=== PATIENT | female | born 1935 | race Caucasian/White ===

== ENCOUNTER 2020-02-18 13:17 | Outpatient (CLI) | payer MEDICARE, SELFPAY ==
--- NOTE | 2020-02-18 13:53 | ECHO_ITS ---
Patient Info Name: Jessica Sparks Age: 84 years : 1935 Gender: Female Ht: 68 in Wt: 282 lbs BSA: 2.54 m2 HR: 60 bpm BP: 141 / 70 mmHg Technical Quality: Fair Exam Date: 02/18/2020 2:02 PM Exam Location: [facility] Patient Status: Outpatient Admit Date: 02/18/2020 Staff Ordering Physician: Arun Weldon PA-C Cleaner And Dyer: Varsha Garcia RDCS Attending Provider: Arun Weldon PA-C Referring Physician: Fatemeh JONES; Exam Type: CA echo doppler color flow Study Info Indications - edema Complete two-dimensional, color flow and Doppler transthoracic echocardiogram is performed. Summary 1. Left ventricular chamber dimension is normal. 2. Left ventricular systolic function is normal, estimated at 60-65%. 3. The left ventricular diastolic function is grade I diastolic dysfunction. 4. E/e' 9 is minimally elevated. 5. Left atrial chamber dimension is mildly enlarged. 6. Right atrial chamber dimension is mildly enlarged. 7. There is mild to moderate tricuspid valve regurgitation. 8. No pulmonary hypertension, estimated pulmonary arterial systolic pressure is 33 mmHg. Left Ventricle E/e' 9 is minimally elevated. Left ventricular chamber dimension is normal. Left ventricular systolic function is normal, estimated at 60-65%. The left ventricular diastolic function is grade I diastolic dysfunction. Right Ventricle Right ventricular chamber dimension is normal. Right ventricular systolic function is normal. Left Atria Left atrial chamber dimension is mildly enlarged. Right Atria Right atrial chamber dimension is mildly enlarged. Aortic Valve The aortic valve is trileaflet. There is no aortic valve stenosis. There is no aortic valve regurgitation. Pulmonic Valve There is no pulmonic regurgitation. Mitral Valve There is no mitral valve stenosis. There is no mitral valve regurgitation. Tricuspid Valve There is mild to moderate tricuspid valve regurgitation. No pulmonary hypertension, estimated pulmonary arterial systolic pressure is 33 mmHg. Pericardium/Pleural There is no pericardial effusion. Inferior Vena Cava Normal inferior vena cava with >50% collapse upon inspiration consistent with normal right atrial pressure, 5 mmHg. Aorta The aortic root size at the sinus of Valsalva is normal. Left Ventricular Outflow Tract Name Value Normal LVOT 2D LVOT Diameter 2.0 cm LVOT Doppler LVOT Peak Gradient 5 mmHg LVOT Mean Gradient 2 mmHg LVOT VTI 26 cm LVOT VTI/AV VTI Ratio 0.9 LVOT Stroke Volume 82 ml LVOT CO 14.3 l/min LVOT CI 5.6 l/min/m2 Pulmonic Valve Name Value Normal PV Doppler PV Peak
== END 2020-02-18 13:18 | disposition home or self-care (01) ==
PROVIDERS: PCP Internal Medicine; Visit Provider Physician Assistant
DX: R60.0 Localized edema (principal); I51.7 Cardiomegaly
CPT/HCPCS: 93306

== ENCOUNTER → 2020-10-03 13:14 | Outpatient (REF) | payer MEDICARE, SELFPAY | LOC: ANHLAB 13:14 | PROVIDERS: PCP Internal Medicine; Visit Provider Nurse Practitioner | DX: R22.9 Localized swelling, mass and lump, unspecified (principal); L72.0 Epidermal cyst | CPT/HCPCS: 88304 ==

== ENCOUNTER 2020-11-05 19:07 | Emergency (ER) | payer MEDICARE, SELFPAY ==
--- NOTE | ~2020-11-05 | XR_ITS ---
EXAMINATION: XR wrist LT min 3V DATE: 11/05/2020 19:39 INDICATION: Left wrist pain post fall TECHNIQUE: Posteroanterior, ulnar deviation, oblique, and lateral views of the left wrist were obtain ed. COMPARISON: none FINDINGS: Nondisplaced mildly comminuted intra-articular fracture at the distal left radius. No significant fra cture gap or incongruity appreciated at the articular cortex. Alignment remains essentially anatomic. No other fractures identified. Polyarticular osteoarthritis, moderate severity at the first carpomet acarpal and second and fourth metacarpophalangeal joints and mild at the distal radioulnar, wrist and remaining metacarpophalangeal joints. Soft tissue swelling about the distal forearm. IMPRESSION: 1. Nondisplaced comminuted intra-articular fracture of the distal left radius. 2. Mild to moderate polyarticular osteoarthritis at the visualized left hand and wrist. Reviewed, dictated and finalized at location A. E VEHICLE SERVICE ATTENDANT IMPRESSION: 1. Nondisplaced comminuted intra-articular fracture of the distal left radius. 2. Mild to moderate polyarticular osteoarthritis at the visualized left hand an d wrist.
--- NOTE | ~2020-11-05 | XR_ITS ---
EXAMINATION: XR elbow LT min 3V DATE: 11/05/2020 19:39 INDICATION: Left arm pain post fall TECHNIQUE: Anteroposterior, two oblique and lateral views of the left elbow were obtained. COMPARISON: None. FINDINGS: Alignment is normal. No fracture or joint effusion. Mild osteoarthritis at the left elbow with mild n onuniform joint space narrowing and small marginal osteophytes at the ulnotrochlear articulation. Mod erate-sized olecranon spur. Soft tissues are unremarkable. IMPRESSION: 1. No acute osseous abnormality. Reviewed, dictated and finalized at location A. OLL EXAMINER
--- NOTE | ~2020-11-05 | XR_ITS ---
EXAMINATION: XR shoulder LT min 2V DATE: 11/05/2020 19:39 INDICATION: Left shoulder pain post fall TECHNIQUE: AP internally and externally rotated, AP oblique externally rotated and transscapular Y vi ews of the left shoulder were obtained. COMPARISON: None FINDINGS: Normal alignment. No fracture.Mild to moderate left glenohumeral and acromioclavicular osteoarthriti s. Visualized portions of the lungs are clear. Severe lower cervical spondylosis. Soft tissues are un remarkable. IMPRESSION: Mild to moderate left glenohumeral and acromioclavicular osteoarthritis. No acute osseous abnormality . Reviewed, dictated and finalized at location A. SYSTEMS ANALYST IMPRESSION: Mild to moderate left glenohumeral and acromioclavicular osteoarthritis. No acu te osseous abnormality.
[2020-11-05 19:08] VITALS: BP 129/61; PULSE 73; RESP 20; TEMP 36.6; O2SAT 100
--- NOTE | 2020-11-05 19:18 | ED.FALL ---
HPI - Fall General Chief Complaint: Fall Stated Complaint: fall, left wrist pain Time Seen by Provider: 11/05/20 19:14 Source: patient Mode of arrival: ambulatory Limitations: no limitations History of Present Illness HPI Narrative: An 85-year-old woman comes into the emergency department today after a fall at home. Patient states that she got lightheaded and started to fall. She complains of pain in her left arm particularly in the shoulder and wrist. Patient states that this has happened before where she has gotten lightheaded. She is identified no certain cause. She denies any chest pain, shortness of breath or dizziness currently. Patient denies any numbness or tingling in the affected extremity. She states that she was able to ambulate in here without any difficulties. Related Data Home Medications Medication Instructions Recorded Confirmed aspirin 81 mg tablet,delayed 162 mg PO DAILY tablet 08/10/19 06/02/20 release hydrocortisone 1 % topical cream 1 applic TOPICAL BID PRN 06/02/20 06/02/20 Allergies Allergy/AdvReac Type Severity Reaction Status Date / Time isosorbide Allergy Mild Rash Verified 10/16/20 14:12 diphenhydramine Allergy Unknown Hives Verified 10/16/20 14:12 medroxyprogesterone Allergy Unknown Unknown Verified 10/16/20 14:12 BANDAIDS Allergy Mild REDNESS Uncoded 10/03/20 13:13 PROVERS Allergy Mild PER PT, Uncoded 10/03/20 13:13 STATES INFO FROM HER DRS OFFICE Review of Systems Review of Systems: Narrative: CONSTITUTIONAL: Denies fever, chills, or sweats. EYES: Denies visual changes, redness, or discharge. ENT: Denies rhinorrhea, congestion, sore throat, or otalgia. CARDIOVASCULAR: Denies chest pain, palpitations, or edema. RESPIRATORY: Denies cough or dyspnea. GASTROINTESTINAL: Denies abdominal pain, nausea, vomiting, or diarrhea. GENITOURINARY: Denies dysuria or hematuria. SKIN: Denies rash or itching. MUSCULOSKELETAL: Denies back pain, joint pain, or myalgia. Endorses left upper extremity pain. NEUROLOGIC: Denies headache, numbness, dizziness, or weakness. PSYCHIATRIC: Denies anxiety or depression. [facility] Past Medical History Medical History (Updated 11/05/20 @ 20:34 by Joce Delcid DO) History of basal cell carcinoma (BCC) of skin History of squamous cell carcinoma of skin Ventral hernia Surgical History Surgical History Hx of knee surgery Family History Family History Father Family history of heart disease in male family member before age 55 Mother Family history of heart disease in male family member before age 55 Family history of malignant neoplasm Sibling Family history of heart disease in male family member before age 55 Family history of multiple sclerosis Family history of malignant neoplasm Family history of malignant neoplasm of bone Social History Social History Smoking status: Never smoker Second hand tobacco smoke exposure: No Alcohol intake: never Substance use: never Gender identity (if verbalized by the patient): Female Exam Narrative: Exam Narrative: GENERAL: Well-appearing, well-nourished, and in no acute distress. HEAD: Normocephalic, atraumatic. EYES: PERRLA and EOMI. ENT: Nares clear, no rhinorrhea or epistaxis. Mucous membranes moist. NECK: Supple. No adenopathy or masses. No carotid bruits or JVD CHEST: Clear to auscultation. No respiratory distress. No wheezes rales or rhonchi HEART: Regular rate and rhythm. No murmur heard. Normal peripheral pulses. ABDOMEN: Soft, nontender, nondistended, normal active bowel sounds. EXTREMITIES: Normal range of motion. No edema. SKIN: Warm, dry, no rash. NEURO: No focal deficits. Alert and oriented x3. PSYCH: Normal mood and affect. Course Reevaluation(s) Reevaluation #1: Patient updated to the results of he
--- NOTE | 2020-11-05 19:25 | PC.NURSE ---
pt to xray at this time
[2020-11-05] MEDS: LACTATED RINGERS 1,000 ML 999 ML IV CONT (19:47)
[2020-11-05] MEDS: HYDROcodone/acetaminophen (*CRX) 5-325 MG TABLET 1 TAB PO (19:48)
--- NOTE | 2020-11-05 19:55 | PC.NURSE ---
pt states she isn't able to give urine sample at this time. she states she went before coming to the ed. refusing straight cath at this time.
[2020-11-05 19:57] LABS: Basophils Percent Auto 0.3 % (0.2-1.2); Eosinophils Absolute Auto 0.2 K/mm3 (0-0.3); Eosinophils Percent Auto 1.8 % (0-4.4); Hematocrit 40.6 % (37.0-47.0); Hemoglobin 13.3 g/dL (12.0-15.0); Immature Granulocyte Absolute 0.03 K/mm3 (0.00-0.031); Immature Granulocyte Percent A 0.3 % (0-0.5); Lymphocytes Absolute Auto 1.19 K/mm3 (0.9-3.2); Lymphocytes Percent Auto 13.3 % (18.3-44.2); Mean Corpuscular HGB Conc 32.8 g/dl (32-36); Mean Corpuscular Hemoglobin 30.7 pg (26-34); Mean Corpuscular Volume 93.8 fl (80-100); Mean Platelet Volume 10.4 fl (7.4-10.4); Monocytes Absolute Auto 0.7 K/mm3 (0.1-0.6); Monocytes Percent Auto 7.5 % (2.6-8.5); Neutrophils Absolute Auto 6.9 K/mm3 (1.3-6.7); Neutrophils Percent Auto 76.8 % (45.5-73.1); Platelet Count Result 213 k/mm3 (150-375); Red Blood Count 4.33 M/mm3 (4.2-5.4); Red Cell Distribution Width 14.1 % (11.5-14.5)
[2020-11-05 20:07] LABS: Potassium 3.6 mmol/L (3.4-5.0)
[2020-11-05 20:12] LABS: Alanine Aminotransferase 25 U/L (4-35); Albumin Level 3.9 g/dL (3.5-5.1); Alkaline Phosphatase 91 U/L (38-126); Anion Gap 7 mmol/L (8-16); Aspartate Amino Transferase 32 U/L (14-36); Bilirubin,Total 0.6 mg/dL (0.2-1.3); Blood Urea Nitrogen 26 mg/dL (7-17); Carbon Dioxide 26 mmol/L (22-30); Chloride 107 mmol/L (98-107); Estimated CRCL calculation 37 ml/min; Estimated Glomerular Filt Rate 53; Glucose 148 mg/dL (65-105); Magnesium 1.8 mg/dL (1.6-2.3); Sodium 140 mmol/L (137-145)
[2020-11-05 21:00] VITALS: BP 126/85; PULSE 76; RESP 18; O2SAT 99
== END 2020-11-05 21:07 | disposition home or self-care (01) ==
PROVIDERS: Emergency Provider Emergency Medicine; PCP Internal Medicine
DX: S52.532A Colles' fracture of left radius, initial encounter for closed fracture (principal); Z79.82 Long term (current) use of aspirin; Z85.828 Personal history of other malignant neoplasm of skin; M19.012 Primary osteoarthritis, left shoulder; M19.032 Primary osteoarthritis, left wrist; M18.9 Osteoarthritis of first carpometacarpal joint, unspecified; M19.042 Primary osteoarthritis, left hand; W18.39XA Other fall on same level, initial encounter
CPT/HCPCS: 29125; 36415; 73030; 73080; 73110; 80053; 83735; 85025; 99284; A4565; A9270; J7120

== ENCOUNTER 2020-12-15 13:31 | Outpatient (CLI) | payer MEDICARE, SELFPAY ==
--- NOTE | ~2020-12-15 | US_ITS ---
EXAMINATION: US carotid duplex BI DATE: 12/15/2020 14:35 INDICATION: Syncope and collapse. Carotid atherosclerosis. TECHNIQUE: Grayscale, color Doppler, and pulsed Doppler images of the cervical carotid arteries were obtained. The degree of vessel stenosis is placed in one of the following categories: normal, <50%, 5 0-69%, >=70% but less than near-occlusion, near-occlusion, or total occlusion. Note that percent sten osis relative to normal distal artery lumen diameter is indirectly measured from velocity measurement s as described by Abelino, et al. Radiology 2003; 229:340-346. COMPARISON: None. FINDINGS: RIGHT: The right common carotid artery (CCA) peak systolic velocity (PSV) is 83 cm/s. The right internal car otid artery (ICA) PSV is 130 cm/s. The right ICA end-diastolic velocity (EDV) is 24 cm/s. The right I CA/CCA PSV ratio is 1.6. Grayscale and color Doppler images including secondary Doppler criteria yiel d an estimate of <50% diameter reduction from plaque in the ICA. The external carotid artery (ECA) PS V is 121 cm/s. There is antegrade flow in the right vertebral artery. LEFT: The left CCA PSV is 88 cm/s. The left ICA PSV is 98 cm/s. The left ICA EDV is 19 cm/s. The left ICA/C CA PSV ratio is 1.1. Grayscale and color Doppler images yield an estimate of <50% diameter reduction from plaque in the ICA. The cervical left internal carotid artery distal to the bulb is tortuous. The ECA PSV is 96 cm/s. There is antegrade flow in the left vertebral artery. IMPRESSION: 1. <50% stenosis in the right internal carotid artery. 2. <50% stenosis in the left internal carotid artery. Reviewed, dictated and finalized at location A.
--- NOTE | 2020-12-20 13:53 | WPDHOLTEREM ---
Holter/Event Monitor Holter/Event Monitor Date of procedure: 12/15/20 Procedure Type: 48 hour holter monitor Indications: Syncope Conclusion: 1. 48 hour holter monitor on 12/15/20. 2. Underlying rhythm is sinus rhythm. HR range 51-102 bpm; average HR 70 bpm. 3. There are 308 premature supraventricular complexes and 7 supraventricular couplets. No supraventricular tachycardia. 4. There are 2 premature ventricular complexes. No ventricular tachycardia. 5. No sinoatrial or atrioventricular blocks. No significant pauses greater than 2 seconds. 6. Patient reports an episode of dizziness which demonstrate sinus rhythm at 70 bpm.
== END 2020-12-15 13:32 | disposition home or self-care (01) ==
PROVIDERS: PCP Internal Medicine; Visit Provider Internal Medicine
DX: R55 Syncope and collapse (principal); I65.23 Occlusion and stenosis of bilateral carotid arteries
CPT/HCPCS: 93225; 93226; 93880

== ENCOUNTER → 2021-02-28 11:45 | Outpatient (CLI) | payer MEDICARE, SELFPAY ==
--- NOTE | ~2021-02-28 | CT_ITS ---
EXAMINATION: CT brain wo con DATE: 02/28/2021 12:03 INDICATION: Dizziness. Syncope. TECHNIQUE: Computed tomography (CT) of the head was performed without intravenous contrast. The mA wa s adjusted according to patient size. Iterative reconstruction technique was employed. The dose-lengt h product was 599.57 mGy-cm. COMPARISON: Head CT 07/09/2005 FINDINGS: There is no intracranial hemorrhage, acute infarction, or abnormal intracranial mass lesion . The ventricles are normal in size. There is anteroposterior elongation of the ocular globes. The pa ranasal sinuses are clear. The mastoid air cells are normal. IMPRESSION: 1. Normal brain. Reviewed, dictated and finalized at location A. IMPRESSION: 1. Normal brain.
== END ==
PROVIDERS: PCP Internal Medicine; Visit Provider Internal Medicine
DX: R42 Dizziness and giddiness (principal)
CPT/HCPCS: 70450

== ENCOUNTER 2021-04-03 14:16 | Emergency (ER) | payer MEDICARE, SELFPAY ==
[2021-04-03] VITALS (7 sets, daily range): BP systolic 135–166; BP diastolic 61–94; PULSE 58–76; RESP 16–22; TEMP 36.8; O2SAT 97–98
--- NOTE | ~2021-04-03 | CT_ITS ---
EXAMINATION: CTA abdomen pelvis EXAM DATE: 04/05/2021 11:33 INDICATION: Flank pain, evaluate endoleak . TECHNIQUE: Spiral CTA abdomen pelvis was performed following intravenous injection of 100 mL Omnipaqu e 350. Axial, coronal and sagittal images were reviewed. Maximum intensity projection 3-D reconstruc tions of the arteries were created by the technologist on dedicated workstation. The dose-length p roduct (DLP) for this examination was 1468.09 mGy-cm. The exposure was tailored according to patient size (auto mA exposure control), and iterative reconstruction (ASIR) was used as additional dose red uction technique. Comparison is made to prior examination from 04/03/2021, 08/05/2012. FINDINGS: There is mid and distal aortobiiliac endograft within aneurysm which measured 4.5 cm in 201 2, measures 4.4 cm maximally today. Right common iliac artery which is stented measures 2.5 cm. No ru pture or inflammation surrounding the aorta. There is blush of arterial enhancement beyond stent confines anterior to the aortic portion of the ri ght iliac branch/stent, probably type III or type IV endoleak. The inferior mesenteric artery takes o ff anterior to this and is enhancing, may be supplied through this. No retrograde feeding vessel is identified or evidence of separation at the ends of the stent. The liver, spleen, adrenal glands and pancreas are unremarkable. Vicarious excretion of contrast to the gallbladder from CT scan 2 days earlier. Portal and splenic veins are patent. Kidneys enhance s ymmetrically. There is no hydronephrosis. Probable 4 mm left superior calyceal stone. The uterus is unremarkable. The bladder is unremarkable. There is no retroperitoneal or pelvic lymphadenopathy. Left inguinal surgical clips. The appendix is normal. There is mild to moderate sigmoid predominant colonic diverticulosis. There is no adjacent inflammatory change to suggest diverticulitis. The stomach and small bowel are unremar kable. There is expected amount of colonic stool. No free intraperitoneal gas. The heart is norm al in size. There are no pericardial or pleural effusions. The lung bases are unremarkable. There are no osteoblastic or osteolytic lesions identified. 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 There are no osteoblastic or osteolytic lesions identified. There is no significant interval change compared to 2 days earlier. IMPRESSION: 1. 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 2. Mild to moderate colonic diverticulosis. 3. Left nephrolithiasis. 4. Left hip AVN. 5. No acute findings. Reviewed, dictated and finalized at location B. IMPRESSION: 1. 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 2. Mild to moderate colonic diverticulosis. 3. Left nephrolithiasis. 4. Left hip AVN. 5. No acute findings.
--- NOTE | ~2021-04-03 | CT_ITS ---
EXAMINATION: CT abdomen pelvis w con EXAM DATE: 04/03/2021 17:40 INDICATION: Right lower quadrant abd pain radiating to back . TECHNIQUE: Spiral CT of the abdomen and pelvis was performed following intravenous injection of 100 m L Omnipaque 350. Axial, coronal and sagittal images of the abdomen and pelvis were reviewed. The do se-length product (DLP) for this examination was 1536.50 mGy-cm. The exposure was tailored according to patient size (auto mA exposure control), and iterative reconstruction (ASIR) was used as addition al dose reduction technique. Comparison is made to prior examination from 01/01/2012. FINDINGS: There is been interval treatment of abdominal aortic aneurysm, endograft within aneurysm wh ich measured 4.5 cm in 2011, measures 4.4 cm maximally today. Right common iliac artery which is sten jojo measures 2.5 cm. Regions of the stented abdominal aorta are suspicious for endoleak. No rupture o r inflammation surrounding the aorta. The liver, spleen, adrenal glands and pancreas are unremarkable. Gallbladder is unremarkable. No bi liary obstruction. Portal and splenic veins are patent. Kidneys enhance symmetrically. There is no hydronephrosis. Probable 4 mm left superior calyceal stone. The uterus is unremarkable. The bladd er is unremarkable. There is no retroperitoneal or pelvic lymphadenopathy. Left inguinal surgical clips. The appendix is normal. There is mild to moderate sigmoid predominant colonic diverticulosis. There is no adjacent inflammatory change to suggest diverticulitis. The stomach and small bowel are unremar kable. There is expected amount of colonic stool. No free intraperitoneal gas. The heart is norm al in size. There are no pericardial or pleural effusions. The lung bases are unremarkable. There are no osteoblastic or osteolytic lesions identified. 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 There are no osteoblastic or osteolytic lesions identified. IMPRESSION: 1. No acute intra-abdominal findings. 2. 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 3. Mild to moderate colonic diverticulosis. 4. Left nephrolithiasis. 5. Left hip AVN. Reviewed, dictated and finalized at location A.
[2021-04-03 14:47] LABS: Basophils Percent Auto 0.3 % (0.2-1.2); Eosinophils Absolute Auto 0.2 K/mm3 (0-0.3); Eosinophils Percent Auto 2.9 % (0-4.4); Hemoglobin 12.9 g/dL (12.0-15.0); Immature Granulocyte Absolute 0.03 K/mm3 (0.00-0.031); Immature Granulocyte Percent A 0.5 % (0-0.5); Lymphocytes Absolute Auto 1.34 K/mm3 (0.9-3.2); Lymphocytes Percent Auto 21.4 % (18.3-44.2); Mean Corpuscular HGB Conc 32.3 g/dl (32-36); Mean Corpuscular Hemoglobin 29.3 pg (26-34); Mean Corpuscular Volume 90.7 fl (80-100); Mean Platelet Volume 10.5 fl (7.4-10.4); Monocytes Absolute Auto 0.7 K/mm3 (0.1-0.6); Monocytes Percent Auto 11.5 % (2.6-8.5); Neutrophils Percent Auto 63.4 % (45.5-73.1); Platelet Count Result 194 k/mm3 (150-375); Red Blood Count 4.41 M/mm3 (4.2-5.4); Red Cell Distribution Width 14.9 % (11.5-14.5); White Blood Count 6.3 K/mm3 (4.5-10.0)
[2021-04-03 15:02] LABS: Add Urine Microscopic? NO; Appearance Urine Clear (Clear); Bilirubin Urine Negative (Negative); Blood Urine Negative (Negative); Color Urine Straw (Yellow); Glucose Urine UA Negative (Negative); Ketones Urine Negative (Negative); Leukocyte Esterase Ur Negative LEU/UL (Negative); Nitrate Urine Negative (Negative); Protein Urine Negative (Negative); Urobilinogen Urine Negative mg/dL (<2.0)
[2021-04-03 15:05] LABS: Alanine Aminotransferase 18 U/L (4-35); Alkaline Phosphatase 102 U/L (38-126); Anion Gap 6 mmol/L (8-16); Aspartate Amino Transferase 26 U/L (14-36); Bilirubin,Total 0.4 mg/dL (0.2-1.3); Blood Urea Nitrogen 41 mg/dL (7-17); Calcium 10.1 mg/dL (8.4-10.2); Carbon Dioxide 29 mmol/L (22-30); Chloride 103 mmol/L (98-107); Estimated CRCL calculation 41 ml/min; Estimated Glomerular Filt Rate 39; Glucose 135 mg/dL (65-105); Lipase 107 U/L (23-300); Potassium 4.4 mmol/L (3.4-5.0); Sodium 138 mmol/L (137-145)
--- NOTE | 2021-04-03 17:17 | ED.ABDPAIN ---
HPI - Abdominal Pain General Chief Complaint: Abdominal Pain <UBALDO Leigh Last Filed: 04/04/21 02:51> Stated Complaint: abd/back pain <UBALDO Leigh Last Filed: 04/04/21 02:51> Time Seen by Provider: 04/03/21 16:59 <UBALDO Leigh Last Filed: 04/04/21 02:51> Source: patient <UBALDO Leigh Last Filed: 04/04/21 02:51> Mode of arrival: ambulatory <UBALDO Leigh Last Filed: 04/04/21 02:51> Limitations: no limitations <UBALDO Leigh Last Filed: 04/04/21 02:51> History of Present Illness HPI narrative: This is an 85-year-old female that presents to the emergency department for right lower quadrant abdominal pain present since this morning. Reports the pain is constant and sharp in nature. It radiates to her right flank. Associated with urinary frequency. Denies fever, nausea, vomiting, dysuria, or hematuria. <UBALDO Leigh Last Filed: 04/04/21 02:51> Related Data Home Medications: Home Medications Medication Instructions Recorded Confirmed aspirin 81 mg tablet,delayed 162 mg PO DAILY tablet 08/10/19 01/02/21 release hydrocortisone 1 % topical cream 1 applic TOPICAL BID PRN 06/02/20 01/02/21 <UBALDO Leigh Last Filed: 04/04/21 02:51> Allergies/Adverse Reactions: Allergies Allergy/AdvReac Type Severity Reaction Status Date / Time isosorbide Allergy Mild Rash Verified 02/23/21 11:04 diphenhydramine Allergy Unknown Hives Verified 02/23/21 11:04 medroxyprogesterone Allergy Unknown Unknown Verified 02/23/21 11:04 BANDAIDS Allergy Mild REDNESS Uncoded 02/23/21 11:04 PROVERS Allergy Mild PER PT, Uncoded 02/23/21 11:04 STATES INFO FROM HER DRS OFFICE <UBALDO Leigh Last Filed: 04/04/21 02:51> Review of Systems Review of Systems: Narrative: CONSTITUTIONAL: Denies fever CARDIOVASCULAR: Denies chest pain RESPIRATORY: Denies dyspnea. GASTROINTESTINAL: Reports abdominal pain. Denies nausea, vomiting, or diarrhea. GENITOURINARY: Denies dysuria or hematuria. <Sybil Townsend PA-C - Last Filed: 04/04/21 02:51> All systems reviewed & are unremarkable except as noted in HPI and below <Sybil Townsend PA-C - Last Filed: 04/04/21 02:51> PMFSH Past Medical History Medical History: Medical History (Updated 04/03/21 @ 18:19 by Sybil Townsend PA-C) Fracture of left distal radius History of basal cell carcinoma (BCC) of skin History of squamous cell carcinoma of skin Hypothyroidism Lymphedema Ventral hernia <Sybil Townsend PA-C - Last Filed: 04/04/21 02:51> Surgical History Surgical History: Surgical History (Updated 04/03/21 @ 17:22 by Sybil Townsend PA-C) History of AAA (abdominal aortic aneurysm) repair History of aortic valve replacement Hx of knee surgery <Sybil Townsend PA-C - Last Filed: 04/04/21 02:51> Family History Family History: Family History Father Family history of heart disease in male family member before age 55 Mother Family history of heart disease in male family member before age 55 Family history of malignant neoplasm Sibling Family history of heart disease in male family member before age 55 Family history of multiple sclerosis Family history of malignant neoplasm Family history of malignant neoplasm of bone <Sybil Townsend PA-C - Last Filed: 04/04/21 02:51> Social History Social History: Social History Smoking status: Never smoker Second hand tobacco smoke exposure: No Alcohol intake: never Substance use: never Gender identity (if verbalized by the patient): Female <Sybil Townsend PA-C - Last Filed: 04/04/21 02:51> Exam Narrative: Exam Narrative: GENERAL: Well-appearing, well-nourished, and in no acute distress. HEAD: Normocephalic, atraumatic. EYES: EOMI. CH
[2021-04-03] MEDS: MORPHINE SULFATE (*CRX) 2 MG/ML INJ IV PUSH (18:07)
[2021-04-03] MEDS: ONDANSETRON INJ 4 MG/2 ML VIAL IV PUSH (18:07)
[2021-04-03] MEDS: MORPHINE SULFATE (*CRX) 4 MG/ML INJ IV PUSH (18:59)
[2021-04-03 22:44] LABS: Partial Thromboplastin Time 28.3 SECONDS (22.3-36.8)
[2021-04-04] VITALS (47 sets, daily range): BP systolic 109–150; BP diastolic 44–96; PULSE 65–94; RESP 11–24; TEMP 36.7; O2SAT 92–100
[2021-04-04] MEDS: MORPHINE SULFATE (*CRX) 4 MG/ML INJ IV PUSH ×2 (04:48→18:20)
[2021-04-04] MEDS: SODIUM CHLORIDE 0.9% IV 1,000 ML 100 ML IV CONT (05:03)
[2021-04-04] MEDS: carvediloL 6.25 MG TABLET PO (18:30)
--- NOTE | 2021-04-04 18:39 | PC.NURSE ---
called [facility] transfer line for bed update at 1114, no bed at this time, waiting discharges. called [facility] transfer line for bed update, 1723, no bed at this time, they will check with their household appliance assembler at 1999 for discharges/bed.
--- NOTE | 2021-04-04 20:14 | PC.NURSE ---
Tonia with the [facility] transfer line called to confirm that patient was still needing to be transferred. Also, still no bed available, will keep us updated on bed status.
[2021-04-04 21:09] LABS: Hematocrit 36.9 % (37.0-47.0); Hemoglobin 11.4 g/dL (12.0-15.0)
[2021-04-04] MEDS: SODIUM CHLORIDE 0.9% IV 500 ML 999 ML IV CONT (21:11)
[2021-04-05] VITALS (48 sets, daily range): BP systolic 121–172; BP diastolic 55–100; PULSE 60–92; RESP 10–20; O2SAT 91–100
--- NOTE | 2021-04-05 04:18 | PC.NURSE ---
Dipti from the transfer line called to confirm patient still required transfer. Also, no beds available as of yet.
--- NOTE | 2021-04-05 04:56 | PC.NURSE ---
I asked DR. Gao about her heart medication and updated her about her BP. Dr gao states not to give the medication and is ok with the bp
[2021-04-05] MEDS: hydroCHLOROthiazide 12.5 MG CAPSULE PO (10:02)
[2021-04-05] MEDS: VALSARTAN 160 MG TABLET 320 MG PO (10:03)
[2021-04-05] MEDS: FUROSEMIDE 40 MG TABLET PO (10:03)
[2021-04-05] MEDS: LEVOTHYROXINE SODIUM 50 MCG TABLET PO (10:03)
[2021-04-05] MEDS: ASPIRIN 81 MG CHEWABLE TABLET 162 MG PO (10:07)
[2021-04-05 10:10] LABS: Add Urine Microscopic? NO; Appearance Urine Clear (Clear); Bilirubin Urine Negative (Negative); Blood Urine Negative (Negative); Color Urine Yellow (Yellow); Glucose Urine UA Negative (Negative); Ketones Urine Negative (Negative); Leukocyte Esterase Ur Negative LEU/UL (Negative); Nitrate Urine Negative (Negative); Protein Urine Negative (Negative); Specific Grav Ur 1.024 (1.001-1.035); Urobilinogen Urine Negative mg/dL (<2.0)
[2021-04-05 10:22] LABS: Basophils Percent Auto 0.4 % (0.2-1.2); Eosinophils Absolute Auto 0.2 K/mm3 (0-0.3); Eosinophils Percent Auto 2.7 % (0-4.4); Hematocrit 37.9 % (37.0-47.0); Hemoglobin 12.1 g/dL (12.0-15.0); Immature Granulocyte Absolute 0.03 K/mm3 (0.00-0.031); Immature Granulocyte Percent A 0.4 % (0-0.5); Lymphocytes Absolute Auto 1.71 K/mm3 (0.9-3.2); Lymphocytes Percent Auto 23.3 % (18.3-44.2); Mean Corpuscular HGB Conc 31.9 g/dl (32-36); Mean Corpuscular Hemoglobin 29.7 pg (26-34); Mean Corpuscular Volume 93.1 fl (80-100); Mean Platelet Volume 10.3 fl (7.4-10.4); Monocytes Absolute Auto 0.8 K/mm3 (0.1-0.6); Monocytes Percent Auto 10.9 % (2.6-8.5); Neutrophils Absolute Auto 4.6 K/mm3 (1.3-6.7); Neutrophils Percent Auto 62.3 % (45.5-73.1); Platelet Count Result 163 k/mm3 (150-375); Red Blood Count 4.07 M/mm3 (4.2-5.4); Red Cell Distribution Width 15.1 % (11.5-14.5); White Blood Count 7.3 K/mm3 (4.5-10.0)
[2021-04-05 10:39] LABS: Anion Gap 7 mmol/L (8-16); Blood Urea Nitrogen 21 mg/dL (7-17); Calcium 9.5 mg/dL (8.4-10.2); Carbon Dioxide 25 mmol/L (22-30); Chloride 106 mmol/L (98-107); Estimated CRCL calculation 58 ml/min; Estimated Glomerular Filt Rate 60; Glucose 103 mg/dL (65-105); Potassium 4.2 mmol/L (3.4-5.0); Sodium 138 mmol/L (137-145)
--- NOTE | 2021-04-05 10:58 | PC.NURSE ---
[facility] CALLED TO GIVE UPDATE: NO BEDS AT THIS TIME, DISCHARGES PLANNED AND WILL CALL BACK AT 1400 WITH UPDATE.
== END 2021-04-05 12:28 | disposition home or self-care (01) ==
PROVIDERS: Emergency Medicine; Family Medicine; Physician Assistant; Emergency Provider Emergency Medicine; PCP Internal Medicine
DX: T82.390A Other mechanical complication of aortic (bifurcation) graft (replacement), initial encounter (principal); E03.9 Hypothyroidism, unspecified; Z85.828 Personal history of other malignant neoplasm of skin; Z79.82 Long term (current) use of aspirin
CPT/HCPCS: 36415; 74174; 74177; 80048; 80053; 81003; 83690; 85014; 85018; 85025; 85610; 85730; 96365; 96366; 96375; 96376; 99284; A9270; J0131; J2270; J2405; J7030; J7040; Q9967

== ENCOUNTER 2021-05-11 08:44 | Outpatient (CLI) | payer MEDICARE, SELFPAY ==
--- NOTE | ~2021-05-11 | NM_ITS ---
EXAMINATION: NM francesca stress w perfusion DATE: 05/11/2021 13:52 INDICATION: Dyspnea on exertion. TECHNIQUE: Rest images were obtained following intravenous administration of 9.5 mCi Tc99m tetrofosmi n (Myoview). The patient was infused intravenously with Lexiscan (regadenoson). Then, 29.1 mCi Tc99m tetrofosmin (Myoview) was administered intravenously, and stress images were obtained. Data was recon structed into short axis and horizontal and vertical long axis SPECT images. Gated SPECT images were also obtained. COMPARISON: Myocardial perfusion imaging 12/11/2009, CT abdomen and pelvis 04/05/2021 FINDINGS: There is no definite reversible or fixed perfusion abnormality to suggest ischemia or infar ction. There is no segmental wall motion abnormality. Left ventricular ejection fraction measures > 70%. IMPRESSION: 1. No definite ischemia or infarct. 2. Normal left ventricular ejection fraction measuring >70%. Reviewed, dictated and finalized at location B.
--- NOTE | 2021-05-11 08:55 | ECHO_ITS ---
Patient Info Name: Jessica Sparks Age: 86 years : 1935 Gender: Female Ht: 68 in Wt: 272 lbs BSA: 2.49 m2 HR: 75 bpm BP: 130 / 90 mmHg Heart Rhythm: Sinus Rhythm Technical Quality: Fair Exam Date: 05/11/2021 9:24 AM Exam Location: [facility] Pulmonary Patient Status: Outpatient Admit Date: 05/11/2021 Staff Ordering Physician: Rashid Carmichael DO Automatic Wheel Line Operator: Cammy Woods RDCS Attending Provider: Rashid Carmichael DO Referring Physician: Jany BLOCK; Exam Type: CA echo doppler color flow Study Info Indications R06.09 - Other forms of dyspnea Complete two-dimensional, color flow and Doppler transthoracic echocardiogram is performed. Summary 1. Complete two-dimensional, color flow and Doppler transthoracic echocardiogram is performed. 2. Left ventricular chamber dimension is normal. 3. Left ventricular systolic function is normal, estimated at 60-65%. 4. The left ventricular diastolic function is grade I diastolic dysfunction. 5. E/e' 10 is mildly elevated. 6. Left atrial chamber dimension is mildly enlarged. 7. There is trace mitral valve regurgitation. 8. There is mild tricuspid valve regurgitation. 9. No pulmonary hypertension, estimated pulmonary arterial systolic pressure is 37 mmHg. 10. There is trace pulmonic regurgitation. Left Ventricle E/e' 10 is mildly elevated. Left ventricular chamber dimension is normal. Left ventricular systolic function is normal, estimated at 60-65%. The left ventricular diastolic function is grade I diastolic dysfunction. Right Ventricle Right ventricular chamber dimension is normal. Right ventricular systolic function is normal. Left Atria Left atrial chamber dimension is mildly enlarged. Right Atria Right atrial chamber dimension is normal. Aortic Valve The aortic valve is trileaflet. There is no aortic valve stenosis. There is no aortic valve regurgitation. Pulmonic Valve There is trace pulmonic regurgitation. Mitral Valve There is no mitral valve stenosis. There is trace mitral valve regurgitation. Tricuspid Valve There is mild tricuspid valve regurgitation. No pulmonary hypertension, estimated pulmonary arterial systolic pressure is 37 mmHg. Pericardium/Pleural There is no pericardial effusion. Inferior Vena Cava Normal inferior vena cava with >50% collapse upon inspiration consistent with normal right atrial pressure, 5 mmHg. Aorta The aortic root size at the sinus of Valsalva is normal. Left Ventricular Outflow Tract Name Value Normal LVOT 2D LVOT Diameter 1.9 cm LVOT Doppler LVOT Peak Gradient 5 mmHg LVOT Mean Gradient 2 mmHg LVOT VTI 25 cm LVOT VTI/AV VTI Ratio 0.7 LVOT Stroke Volume 68 ml LVOT CO 4.9 l/min LVOT CI 2.0 l/min/m2 Pulmonic Valve Name Value Normal ------
--- NOTE | 2021-05-11 08:56 | EST_ITS ---
Patient Info Name: Jessica Sparks Age: 86 years : 1935 Gender: Female Ht: 68 in Wt: 272 lbs BSA: 2.49 m2 HR: 72 bpm BP: 131 / 59 mmHg Heart Rhythm: Sinus Rhythm Exam Date: 05/11/2021 11:14 AM Exam Location: [facility] Stress Patient Status: Outpatient Admit Date: 05/11/2021 Staff Ordering Physician: Rashid Carmichael DO Attending Provider: Rashid Carmichael DO Exercise Technologist: Joan Anderson CT Exercise Physician: Brayden Lantigua DO Exam Type: CA stress francesca w NM Study Info A regadenoson stress test was performed. Summary 1. 1. Negative Lexiscan stress test for ischemic ST changes by ECG criteria. 2. 2. Stable hemodynamics throughout the test. 3. 3. Nuclear scan to follow and will be reported separately. Please correlate with it. 4. 4. Patient informed of the above results. Protocol: Lexiscan Stress ECG Details Stage: REST Duration (min): 2 min : 21 sec HR (bpm): 75 SBP (mmHg): 131 DBP (mmHg): 59 Stage: REST Duration (min): 6 min : 14 sec HR (bpm): 75 SBP (mmHg): 131 DBP (mmHg): 59 Stage: STAGE 1 Duration (min): 1 min : 0 sec HR (bpm): 82 SBP (mmHg): 126 DBP (mmHg): 63 Stage: RECOVERY Duration (min): 1 min : 0 sec HR (bpm): 82 SBP (mmHg): 126 DBP (mmHg): 63 Stage: RECOVERY Duration (min): 2 min : 0 sec HR (bpm): 84 SBP (mmHg): 126 DBP (mmHg): 63 Stage: RECOVERY Duration (min): 3 min : 0 sec HR (bpm): 80 SBP (mmHg): 110 DBP (mmHg): 61 Stage: RECOVERY Duration (min): 4 min : 0 sec HR (bpm): 80 SBP (mmHg): 110 DBP (mmHg): 61 Stage: RECOVERY Duration (min): 5 min : 0 sec HR (bpm): 79 SBP (mmHg): 114 DBP (mmHg): 58 Stage: RECOVERY Duration (min): 5 min : 33 sec HR (bpm): 82 SBP (mmHg): 114 DBP (mmHg): 58 Rest HR: 75 bpm Peak HR: 85 bpm Rest Sys BP: 131 mmHg Peak Sys BP: 126 mmHg Max Pred HR: 135 bpm % Max Pred HR: 63 % Target HR: 115 bpm Max RPP: 10,710 bpm*mmHg Termination Reason: Completed protocol Cardiac Symptoms: Shortness of breath Total Time: 1 min : 0 sec Rest Clarke BP: 59 mmHg Peak Clarke BP: 63 mmHg Total Dose: 0.4 mg Resting ECG Sinus rhythm with first degree AV block. Stress ECG No ST changes. Arrhythmias None. Report Signatures
--- NOTE | 2021-05-11 14:57 | WPDPFTINT ---
PFT Procedure Performed PFT Procedure Performed Spirometry with Pre/Post Bronchodilator Plethysmography (Lung Vol) Diffusing Cap (DLCO) Flow Vol Loop PFT Interpretation This is a pulmonary function test with pre and post-bronchodilator spirometry, plethysmography and diffusing capacity. The test was performed and results interpreted in accordance with the 2019 and 2005 ATS/ERS Task Force guidelines respectively using the Global Lung Function Initiative-2012 reference equations. Patient demonstrated good effort and cooperation. Reproducibility criteria were met. The quality of the pre bronchodilator spirometry maneuver was Grade A and post bronchodilator spirometry maneuver was Grade A. Findings: Spirometry: the contour of the inspiratory and expiratory flow tracing are normal. The pre bronchodilator FVC is 2.70 L, 97% predicted. The FEV1 is 1.91 L, 92% predicted. The FEV1: FVC ratio 71%. The post bronchodilator FVC is 2.97 L, representing a 10% increase. The post bronchodilator FEV1 is 1.97 L, representing a 3% increase. Plethysmography: The total lung capacity is 5.97 L, 105% predicted. The functional residual capacity is 3.15 L, 95% predicted. The residual volume is 2.95 L, 109% predicted. Diffusing capacity: The absolute diffusion capacity is 15.7, 77% predicted. The diffusing capacity corrected for alveolar volume is 3.29, 85% predicted. Impression: The spirometry is normal without evidence of an obstructive abnormality. There is no significant improvement after inhaling a single dose of albuterol. The lung volumes are normal. The diffusing capacity is normal. There are no prior studies for comparison
== END 2021-05-11 08:45 | disposition home or self-care (01) ==
PROVIDERS: PCP Internal Medicine; Visit Provider Internal Medicine
DX: I07.1 Rheumatic tricuspid insufficiency (principal); R06.00 Dyspnea, unspecified; R07.89 Other chest pain
CPT/HCPCS: 78452; 93017; 93306; 94060; 94726; 94729; A9502; J2785

== ENCOUNTER 2021-06-26 13:12 | Outpatient (CLI) | payer MEDICARE, SELFPAY ==
[2021-06-26 13:54] LABS: Add Urine Microscopic? NO; Appearance Urine Clear (Clear); Bilirubin Urine Negative (Negative); Blood Urine Negative (Negative); Color Urine Straw (Yellow); Glucose Urine UA Negative (Negative); Ketones Urine Negative (Negative); Leukocyte Esterase Ur Negative LEU/UL (Negative); Nitrate Urine Negative (Negative); Protein Urine Negative (Negative); Specific Grav Ur 1.011 (1.001-1.035); Urobilinogen Urine Negative mg/dL (<2.0)
== END 2021-06-26 13:13 | disposition home or self-care (01) ==
LOC: ANHLAB 13:14
PROVIDERS: PCP Internal Medicine; Visit Provider Internal Medicine
DX: R30.0 Dysuria (principal)
CPT/HCPCS: 81003

== ENCOUNTER 2021-06-26 15:03 | Emergency (ER) | payer MEDICARE, SELFPAY ==
--- NOTE | ~2021-06-26 | CT_ITS ---
EXAMINATION: CTA abdomen pelvis EXAM DATE: 06/26/2021 16:58 INDICATION: RLQ pain, h/o a possible endo leak. TECHNIQUE: Spiral CT of the abdomen and pelvis was performed without followed by with intravenous inj ection of 100 mL Omnipaque 350. Axial, coronal and sagittal images of the abdomen and pelvis were re viewed. Maximum intensity projection 3-D reconstructions of the arteries were created by the technol koki on dedicated workstation. The dose-length product (DLP) for this examination was 2829.69 mGy-c m. The exposure was tailored according to patient size (auto mA exposure control), and iterative rec onstruction (ASIR) was used as additional dose reduction technique. Comparison is made to prior exami nation from 04/05/2021. FINDINGS: There is aortobiiliac endograft within aneurysm measures 4.5 cm, unchanged. Right common i liac artery which is stented measures 2.5 cm. No rupture or inflammation surrounding the aorta. There is blush of arterial enhancement beyond stent confines anterior to the aortic portion of the ri ght iliac branch/stent, appearance unchanged compared to prior study. The inferior mesenteric artery takes off anterior to this blush of enhancement. The liver, spleen, adrenal glands and pancreas are unremarkable. Gallbladder is unremarkable. No bi liary obstruction. Portal and splenic veins are patent. Kidneys enhance symmetrically. There is no hydronephrosis. Probable 4 mm left superior calyceal stone, and a punctate right mid calyceal stone. The uterus is unremarkable. The bladder is unremarkable. There is no retroperitoneal or pelvic l ymphadenopathy. Left inguinal surgical clips. The appendix is normal. There is mild to moderate sigmoid predominant colonic diverticulosis. There is no adjacent inflammatory change to suggest diverticulitis. There is small sliding gastroesophagea l hiatal hernia. There is expected amount of colonic stool. No free intraperitoneal gas. The hea rt is normal in size. There are no pericardial or pleural effusions. The lung bases are unremarkabl e. There are no osteoblastic or osteolytic lesions identified. 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 There are no osteoblastic or osteolytic lesions eduin ntified. There is no significant interval change. IMPRESSION: 1. Aortobiiliac endograft with endoleak, stable. 2. Nonobstructing bilateral nephrolithiasis. 3. Mild to moderate colonic diverticulosis. 4. Small hiatal hernia. 5. No acute findings. Reviewed, dictated and finalized at location A.
[2021-06-26 15:08] VITALS: BP 139/87; PULSE 80; RESP 19; TEMP 36.1; O2SAT 98
[2021-06-26 15:49] LABS: Basophils Percent Auto 0.3 % (0.2-1.2); Eosinophils Absolute Auto 0.1 K/mm3 (0-0.3); Eosinophils Percent Auto 2.1 % (0-4.4); Hematocrit 39.6 % (37.0-47.0); Hemoglobin 12.9 g/dL (12.0-15.0); Immature Granulocyte Absolute 0.01 K/mm3 (0.00-0.031); Immature Granulocyte Percent A 0.2 % (0-0.5); Lymphocytes Absolute Auto 1.22 K/mm3 (0.9-3.2); Lymphocytes Percent Auto 21.3 % (18.3-44.2); Mean Corpuscular HGB Conc 32.6 g/dl (32-36); Mean Corpuscular Hemoglobin 30.5 pg (26-34); Mean Corpuscular Volume 93.6 fl (80-100); Mean Platelet Volume 10.3 fl (7.4-10.4); Monocytes Absolute Auto 0.6 K/mm3 (0.1-0.6); Monocytes Percent Auto 10.8 % (2.6-8.5); Neutrophils Absolute Auto 3.7 K/mm3 (1.3-6.7); Neutrophils Percent Auto 65.3 % (45.5-73.1); Platelet Count Result 182 k/mm3 (150-375); Red Blood Count 4.23 M/mm3 (4.2-5.4); White Blood Count 5.7 K/mm3 (4.5-10.0)
[2021-06-26 15:59] LABS: Anion Gap 8 mmol/L (8-16); Blood Urea Nitrogen 25 mg/dL (7-17); Calcium 9.9 mg/dL (8.4-10.2); Carbon Dioxide 26 mmol/L (22-30); Chloride 104 mmol/L (98-107); Estimated CRCL calculation 50 ml/min; Estimated Glomerular Filt Rate 53; Glucose 123 mg/dL (65-110); Potassium 3.8 mmol/L (3.4-5.0); Sodium 138 mmol/L (137-145)
--- NOTE | 2021-06-26 16:52 | ED.ABDPAIN ---
HPI - Abdominal Pain General Chief Complaint: Abdominal Pain Stated Complaint: abd pain, from outpatient lab Time Seen by Provider: 06/26/21 15:10 Source: patient Mode of arrival: ambulatory Limitations: no limitations History of Present Illness HPI narrative: 86-year-old female Here because of abdominal pain Patient states that she was already awake at 4:00 this morning when she started having sharp pains in her right back flank and right lower quadrant No particular positions or activities seem to make it better or worse including it is unaffected by bowel movements or voiding She feels like she could throw up but she never does historically, and does note that she has been urinating frequently but that is a longstanding condition which has not changed She does not have any pain or burning when she urinates or any blood in the urine, no fever, no diarrhea She said a couple months ago she was here with similar symptoms and had a bunch of tests and is not sure anybody ever found out what was wrong Looking at the chart it looks like there is a thought that her old aortic stent may have been leaking and that she hung around for a couple of days waiting for a vascular surgery consult and then just went home, and was supposed to follow-up in the office but it sounds like she was never actually seen just had her studies reviewed Related Data Home Medications Medication Instructions Recorded Confirmed hydrocortisone 1 % topical cream 1 applic TOPICAL BID PRN 06/02/20 05/27/21 aspirin 81 mg tablet,delayed 81 mg PO BID tablet 04/06/21 05/27/21 release Allergies Allergy/AdvReac Type Severity Reaction Status Date / Time isosorbide Allergy Mild Rash Verified 06/26/21 15:48 diphenhydramine Allergy Unknown Hives Verified 06/26/21 15:48 medroxyprogesterone Allergy Unknown Unknown Verified 06/26/21 15:48 BANDAIDS Allergy Mild REDNESS Uncoded 05/25/21 09:47 PROVERS Allergy Mild PER PT, Uncoded 05/25/21 09:47 STATES INFO FROM HER DRS OFFICE Review of Systems Review of Systems: All systems reviewed & are unremarkable except as noted in HPI and below Constitutional: Constitutional: Reports no additional constitutional complaints, Denies chills, Denies fever(s) and Denies headache(s) Eyes: Eyes: Reports no additional eye complaints and Denies change in vision ENT: Denies headache(s) and Denies sore throat Cardiovascular: Cardiovascular: Denies chest pain and Denies dyspnea Respiratory: Respiratory: Denies cough and Denies dyspnea Gastrointestinal: Gastrointestinal: Reports abdominal pain, Denies diarrhea, Reports nausea and Denies vomiting Genitourinary: Genitourinary: Denies hematuria, Denies urinary frequency, Reports nocturia and Denies dysuria Musculoskeletal: Musculoskeletal: Denies deformity, Denies arthralgias, Denies joint swelling and Denies numbness Integumentary/Breasts: Skin/Breast: Denies rash and Denies wounds Neurologic: Denies headache(s), Denies focal weakness and Denies numbness Psychiatric: Psychiatric: Reports no additional psychiatric complaints Endocrine: Endocrine: Reports no additional endocrine complaints Hematologic/Lymphatic: Hematologic/Lymphatic: Reports no additional hematologic/lymphatic complaints Allergic/Immunologic: Allergic/Immunologic: Reports no additional allergic/immunologic complaints PMFSH Past Medical History Medical History Fracture of left distal radius History of basal cell carcinoma (BCC) of skin History of squamous cell carcinoma of skin Hypothyroidism Lymphedema Ventral hernia Surgical History Surgical History History of AAA (abdominal aortic aneurysm) repair History of aortic valve replacement Hx of knee surgery Family History Family History Father Family history of heart disease i
[2021-06-26 17:00] VITALS: BP 172/76; PULSE 67; RESP 15; O2SAT 100
[2021-06-26] MEDS: ONDANSETRON HCL ODT 4 MG TABLET PO (18:09)
[2021-06-26 18:11] VITALS: BP 164/82; PULSE 73; RESP 18; O2SAT 99
== END 2021-06-26 18:20 | disposition home or self-care (01) ==
PROVIDERS: Emergency Provider Emergency Medicine; PCP Internal Medicine
DX: R10.31 Right lower quadrant pain (principal); Z79.82 Long term (current) use of aspirin
CPT/HCPCS: 36415; 74174; 80048; 81003; 85025; 99284; A9270; Q9967

== ENCOUNTER → 2022-10-14 12:39 | Outpatient (CLI) | payer MEDICARE, SELFPAY ==
--- NOTE | ~2022-10-14 | CT_ITS ---
Non-contrast CT scan of the Abdomen and Pelvis Clinical indication: Chronic right lower quadrant pain Technique: 5 mm axial scans were obtained through the abdomen and pelvis without intravenous or oral contrast. Dose reduction technique was used on this scan by utilizing automated exposure control and iterative reconstruction technique. The dose-length product (DLP) was 1025.28 mGy-cm. COMPARISON: 06/26/2021 Findings: Images through the lung bases reveal no abnormalities. Small nonobstructing bilateral renal stones noted. No ureteral stone or hydronephrosis. The liver, spleen, pancreas, gallbladder, and adrenals appear normal. Aortic stent graft is present. Underlying abdominal aortic aneurysm distally measures up to 4.6 cm in maximum diameter, unchanged.. There is no evidence of bowel obstruction. Images through the pelvis were performed. There is no evidence of ascites or lymphadenopathy. Urinary bladder unremarkable. No adnexal mass evident. No ascites. Impression: Small bilateral nonobstructing renal stones. Stable infrarenal abdominal aortic aneurysm with aortic stent graft in place. Reviewed, dictated and finalized at [facility]. SCIENCE AND IOT MANAGER Impression: Small bilateral nonobstructing renal stones. Stable infrarenal abdominal aortic aneurysm with aortic stent graft in place.
== END ==
PROVIDERS: PCP Internal Medicine; Visit Provider Internal Medicine
DX: N20.0 Calculus of kidney (principal); I71.40 Abdominal aortic aneurysm, without rupture, unspecified
CPT/HCPCS: 74176

== ENCOUNTER 2023-04-22 13:08 | Outpatient (CLI) | payer MEDICARE, SELFPAY ==
--- NOTE | 2023-04-22 14:00 | NEURO_ITS ---
Impression: # Complains of severe nocturnal paresthesia and numbness of hands. # Severe right Carpal Tunnel Syndrome. # Moderate left Carpal Tunnel Syndrome. 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 # Abnormal Needle/EMG exam. Nerve Conduction Studies Anti Sensory Summary Table Stim Site NR Peak (ms) P-T Amp (?V) Site1 Site2 Delta-P (ms) Dist (cm) [place] (m/s) Left Median Anti Sensory (2-3nd Digit) Wrist 4.3 15.5 Wrist 2-3nd Digit 4.3 14.0 33 Wrist 4.5 34.8 Wrist 2-3nd Digit 4.3 14.0 33 Right Median Anti Sensory (2-3nd Digit) NO RESPONSE Wrist NR Wrist 2-3nd Digit 14.0 Wrist NR Wrist 2-3nd Digit 14.0 Left Radial Anti Sensory (Base 1st Digit) Wrist 2.2 15.6 Wrist Base 1st Digit 2.2 0.0 Right Radial Anti Sensory (Base 1st Digit) Wrist 2.8 5.9 Wrist Base 1st Digit 2.8 0.0 Left Ulnar Anti Sensory (5th Digit) Wrist 2.7 12.6 Wrist 5th Digit 2.7 14.0 52 Right Ulnar Anti Sensory (5th Digit) Wrist 3.0 18.2 Wrist 5th Digit 3.0 14.0 47 Motor Summary Table Stim Site NR Onset (ms) O-P Amp (mV) Site1 Site2 Delta-0 (ms) Dist (cm) [place] (m/s) Left Median Motor (Abd Poll Brev) Wrist 4.1 2.3 Elbow Wrist 5.4 29.0 54 Elbow 9.5 1.9 Right Median Motor (Abd Poll Brev) Wrist 6.8 1.2 Elbow Wrist 6.1 29.0 48 Elbow 12.9 1.9 Left Ulnar Motor (Abd Dig Minimi) Wrist 2.7 5.3 A Elbow Wrist 6.3 30.0 48 A Elbow 9.0 2.7 B Elbow Wrist 4.0 21.0 53 B Elbow 6.7 3.3 Right Ulnar Motor (Abd Dig Minimi) Wrist 3.0 4.8 A Elbow Wrist 6.7 29.0 43 A Elbow 9.7 3.4 B Elbow Wrist 3.3 20.0 61 B Elbow 6.3 4.5 F Wave Studies NR F-Lat (ms) L-R F-Lat (ms) Left Median (Mrkrs) (Abd Poll Brev) 28.95 7.13 Right Median (Mrkrs) (Abd Poll Brev) 36.08 7.13 Left Ulnar (Mrkrs) (Abd Dig Min) 31.74 0.40 Right Ulnar (Mrkrs) (Abd Dig Min) 32.15 0.40 EMG Side Muscle Nerve Root Ins Act Fibs Amp Dur Recrt Comment Right 1stDorInt Ulnar C8-T1 Nml Nml Nml Nml Nml Right Ext Indicis Radial (Post Int) C7-8 Nml Nml Nml Nml Nml Right Ext Digitorum Radial (Post Int) C7-8 Nml Nml Nml Nml Nml Right BrachioRad Radial C5-6 Nml Nml Nml Nml Nml Right PronatorTeres Median C6-7 Nml Nml Nml Nml Nml Right Abd Poll Brev Median C8-T1 Nml Nml Nml Nml Nml Left 1stDorInt Ulnar C8-T1 Nml Nml Nml Nml Nml Left Ext Indicis Radial (Post Int) C7-8 Nml Nml Nml Nml Nml Left Ext Digitorum Radial (Post Int) C7-8 Nml Nml Nml Nml Nml Left BrachioRad Radial C5-6 Nml Nml Nml Nml Nml Left PronatorTeres Median C6-7 Nml Nml Nml Nml Nml Left Abd Poll Brev Median C8-T1 Nml Nml Nml Nml Nml MTDD
== END 2023-04-22 13:09 | disposition home or self-care (01) ==
LOC: ANHNEURO 13:09
PROVIDERS: PCP Internal Medicine; Visit Provider Internal Medicine
DX: G56.03 Carpal tunnel syndrome, bilateral upper limbs (principal); G56.23 Lesion of ulnar nerve, bilateral upper limbs; R20.0 Anesthesia of skin; R94.131 Abnormal electromyogram [EMG]
CPT/HCPCS: 95886; 95911

== ENCOUNTER 2023-06-04 11:23 | Outpatient (CLI) | payer MEDICARE, SELFPAY ==
[2023-06-04 12:24] LABS: Anion Gap 5 mmol/L (8-16); Blood Urea Nitrogen 28 mg/dL (7-17); Calcium 9.6 mg/dL (8.4-10.2); Carbon Dioxide 27 mmol/L (22-30); Chloride 107 mmol/L (98-107); Estimated Glomerular Filt Rate > 60; Glucose 99 mg/dL (65-110); Potassium 4.7 mmol/L (3.4-5.0); Sodium 139 mmol/L (137-145)
== END 2023-06-04 11:24 | disposition home or self-care (01) ==
LOC: ANHSURGERY 11:26
PROVIDERS: Anesthesiology; PCP Internal Medicine; Visit Provider Plastic Surgery
DX: Z01.818 Encounter for other preprocedural examination (principal); I10 Essential (primary) hypertension
CPT/HCPCS: 36415; 80048

== ENCOUNTER 2023-06-09 00:24 | Day surgery (SDC) | payer MEDICARE, SELFPAY ==
--- NOTE | 2023-06-02 10:09 | PC.NURSE ---
Report to the Outpatient Waiting Room, entrance under the green pavilion located off [facility], at time __0600 on date _06/09/23 . Planned Procedure Time: __0730 . Time changes happen often and if your time is changed the preop area will call you the afternoon before. - You and your visitor will be asked to self-screen and do not enter if you have any COVID symptoms. - A mask is optional within the hospital at this time. NPO 8 HOURS PRIOR TO SURGERY ( 11:30 PM) PER DR LOPEZ - Infants may have breast milk until 4 hours before surgery, formula 6 hours prior to surgery. - Children will be allowed to drink immediately following surgery. If applicable, please bring a bottle or sippy cup to assist with drinking. Juice, water, soda, and popsicles are readily available. For infants on formula, please bring formula the day of surgery. Pacifiers are allowed. Take the following medications with a SIP of water the morning of surgery: ___CARVEDILOL, LEVOTHYROXINE DO NOT STOP ANY OF YOUR OTHER PRESCRIPTION MEDICATIONS PRIOR TO SURGERY ?EXCEPT THE FOLLOWING Medications to discontinue per physician ____ASPIRIN PER_DR LOPEZ ALL VITAMINS 3 DAYS PRE OP.LAST DOSE 06/05/23 Please no make-up, nail central african, hairspray, perfume, deodorant, or body powder the day of surgery. No jewelry (including any body piercings) or valuables the day of surgery, leave them at home. Please take a shower or bath the night before, or the morning of, surgery with an antibacterial soap. Wear comfortable, loose fitting clothing. Children are encouraged to wear pajamas. - Jewelry must be removed prior to entering the operating room. Rings and piercings that are not removed may be cut off. - The hospital will not accept responsibility for valuables. - Please leave all valuables, including medications, at home the day of surgery. If you are going home after surgery, a licensed hammer driver must drive you home. - NO public transportation without another adult if you receive anesthesia. - We recommend that an adult stay with you for 24 hours following discharge. - We also recommend that you do not drive, make important decision, drink alcoholic beverages, or take any drugs that were not prescribed by your health care provider for at least 24 hours after your discharge time. For Pediatric surgeries, we recommend two adults accompany the child home. Follow any additional instructions given to you from your surgeon. If you or anyone in your household have experienced Covid symptoms in the past week, please notify your surgeon or the nurse liaison at the phone number below for possible testing. Telephone instructions given to ___PATIENT and asked if any additional questions and then verbalized understanding. Patient advised to call surgeon office or pre surgery nurse liaison [phone] if any additional questions.
[2023-06-02 10:18] VITALS: BMI 41.3
[2023-06-09] MEDS: LACTATED RINGERS 1,000 ML 30 ML IV CONT (06:45)
[2023-06-09 06:50] VITALS: BMI 42.2
--- NOTE | 2023-06-09 07:06 | WPDHPUPDATE1 ---
History and Physical Update Update Date/Time: 06/09/23 07:06 History and Physical has been reviewed, including an updated exam of the patient. There are NO changes in the patient's condition. Patient continues to desire to proceed with right endoscopic possible open carpal tunnel release, right cubital tunnel release and left carpal tunnel steroid injection. Reviewed procedure, post-op expectations and risks including but not limited to bleeding, infection, injury to tendon/nerve/vessel, decreased hand function, stiffness, RSD, no change or worsening of symptoms. Patient stated understanding and signed consent form wishing to proceed.
--- NOTE | 2023-06-09 07:15 | W.PM.PROC2 ---
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 seen and examined and marked in pre-op area.? consent signed Patient taken back to OR on stretcher in supine position. Time out performed with anesthesia, surgeon and staff agreeing on patient name site and surgery to be performed scds placed on LE and inflated tourniquet placed on right upper extremity and antibiotics given IV After anesthesia administered sedation I injected 10cc 1%lido with epi and 0.5% marcaine plain among both operative sites RUE prepped and draped in sterile fashion RUE exanguinated with Esmarch bandage and tourniquet inflated to 250mmHg I made a transverse incision in the right volar distal wrist crease through skin and dermis with 15 blade scalpel.? Littler scissors spread down to antebrachial fascia. A small incision was made in antebrachial fascia allowing access to Carpal tunnel. I proceeded with sequential dilation staying in line with the ring finger and hugging the hook of the hamate.? I then used the synovial elevator to free any adhesions from the underside of the transverse carpal ligament. Next I was able to insert the Microaire endoscopic carpal tunnel device with direct visualization of the transverse fibers on the monitor and proceeded with complete segmental retrograde release of the ligament in its entirety.? I irrgated with normal saline and closed with 4-0 monocry for dermis and subcuticular closure. I next proceeded with making a longitudinal incision between two heads for flexor carpi ulnaris at end of right cubital tunnel with 15 blade scalpel.? Littler scissors used to spread down to FCU fascia.? Incision made in FCU fascia and ulnar nerve identified extiing cubital tunnel.? Proceeded with complete retrograde release of the cubital tunnel including 7cm proximal for intermuscular septum.? The nerve appeared healthy with visible vaso nervorum.? There was no subluxation on full elbow range of motion. ? I irrigated with normal saline and closure with 4-0 monocry for dermis and subcuticular. I then injected 0.3cc 1%lidocaine plain and 0.7cc Betamethasone 6mg/ml into left carpal tunnel under sterile conditions. The incisions were covered with Dermabond then 4x4s, alex, volar wrist splint and posterior elbow splint for patient safety, security and comfort and secured with zofia bandages after the tourniquet was let down noting the hand was warm and well perfused.? Patient awaken from anesthesia and transferred to recovery in stable condition complications - none EBL- 1cc Disposition - home in stable conditions Celestina Del Rosario PA-C was essential for positioning, retraction, closure and dressing/splint application [facility] Billing Surgery - Charge Forward: Surgery Billing ([id number], [id number], [id number] and [id number])
--- NOTE | 2023-06-09 07:16 | WPDANESEPPF ---
Anes - Initial Pre Proc Eval Procedure: Operation Date: 06/09/23 07:30 Proposed Procedures p Right Endoscopic Carpal Tunnel Release Possible Open, Concurrent Left Carpal Tunnel Injection - Yazan Marrero MD Date/Time: 06/09/23 07:16 Surgeon: Yazan Marrero MD Pre Op Diagnosis: Right Carpal Tunnel Syn & Patient Data Age: 88 Gender: F Height: 1.73 m Weight: 126 kg Allergies Allergy/AdvReac Type Severity Reaction Status Date / Time isosorbide Allergy Mild Rash Verified 06/09/23 06:31 diphenhydramine Allergy Unknown Hives Verified 06/09/23 06:31 medroxyprogesterone Allergy Unknown Unknown Verified 06/09/23 06:31 BANDAIDS Allergy Mild REDNESS Uncoded 06/02/23 09:54 PROVERS Allergy Mild PER PT, Uncoded 06/02/23 09:54 STATES INFO FROM HER DRS OFFICE Home Medications Medication Instructions Recorded Confirmed Type aspirin 81 mg tablet,delayed 81 mg PO BID 04/06/21 06/02/23 History release valsartan 320 mg tablet 320 mg PO DAILY #90 tabs 04/22/23 06/02/23 Rx carvedilol 6.25 mg tablet 6.25 mg PO BID #180 tabs 05/20/23 06/02/23 Rx levothyroxine 50 mcg tablet See Rx Instructions .Route 05/20/23 06/02/23 Rx .COMPLEX #90 tabs furosemide 20 mg tablet 20 mg PO BID 06/02/23 06/02/23 History multivitamin with minerals 1 tablet PO DAILY 06/02/23 06/02/23 History (Hair,Skin and Nails tablet) Patient hx anesthesia problems: none Family hx anesthesia problems: none Results Review: All pre-operative results and documents have been reviewed as part of the pre-operative evaluation. [facility] Past Medical History Medical History Fracture of left distal radius History of basal cell carcinoma (BCC) of skin History of squamous cell carcinoma of skin Hypothyroidism Lymphedema Ventral hernia Surgical History Surgical History History of AAA (abdominal aortic aneurysm) repair History of aortic valve replacement Hx of knee surgery Family History Family History Father Family history of heart disease in male family member before age 55 Mother Family history of heart disease in male family member before age 55 Family history of malignant neoplasm Sibling Family history of heart disease in male family member before age 55 Family history of multiple sclerosis Family history of malignant neoplasm Family history of malignant neoplasm of bone Social History Social History Smoking status: Never smoker Second hand tobacco smoke exposure: No Alcohol intake: never Substance use: never Lack of Transportation: No Lack of Food: Never True Current Housing: I Have Housing Concerned About Future Housing: No Difficulty Paying Gas/Electric Bills: No Difficulty Paying for Meds: No Currently Unemployed: No Education: High School Diploma/GED Difficulty w/ Childcare or Family Care: No Living arrangements: alone Occupation/Education: retired Gender identity (if verbalized by the patient): Female Spiritual care concerns: No Anes - Eval Final PreProcedure Day of Procedure 06/09/23 07:16 Patient weight: morbidly obese Heart: regular rate and rhythm Lungs: clear to auscultation Airway: Mallampati scale class III Neurological: alert and oriented Last oral intake: >/= 8 hours ASA classification: III Emergent: no Anesthetic plan: proceed Anesthesia type and monitoring: general GIVS and standard monitoring Results Review: All pre-operative results and documents have been reviewed as part of the pre-operative evaluation. Informed Consent: The patient's anesthetic plan and its attendant risks and benefits were discussed with the patient/family/POA. Questions were solicited and answers provided to the satisfaction of the patient/family/POA.
[2023-06-09] MEDS: ceFAZolin 3 GM/D5W 100 ML 100 ML IVPB (07:27)
[2023-06-09] MEDS: BUPivacaine HCL 0.5% PF 30 ML VIAL 7.5 ML INFILTRATE (08:00)
[2023-06-09] MEDS: LIDO 1%/EPINEPHRINE 1:100,000 20 ML VIAL 7.5 ML INFILTRATE (08:00)
[2023-06-09] MEDS: LIDOCAINE HCL 1% LOCAL INJ 20 ML VIAL INFILTRATE (08:05)
[2023-06-09] MEDS: BETAMETHASONE SOD PHOS/ACETATE 30 MG/5 ML VIAL 4.2 MG IM (08:05)
[2023-06-09 08:13] VITALS: BP 103/61; PULSE 52; RESP 14; O2SAT 98
[2023-06-09 08:30] VITALS: BP 123/67; PULSE 53; RESP 14; O2SAT 96
[2023-06-09 09:00] VITALS: BP 118/57; PULSE 52; RESP 14
== END 2023-06-09 09:12 | disposition home or self-care (01) ==
PROVIDERS: PCP Internal Medicine; Visit Provider Plastic Surgery
PROC: 01N54ZZ Release Median Nerve, Percutaneous Endoscopic Approach (ICD-10-PCS; CPT 29848; principal; 2023-06-09 07:30)
DX: G56.03 Carpal tunnel syndrome, bilateral upper limbs (principal); G56.23 Lesion of ulnar nerve, bilateral upper limbs; E03.9 Hypothyroidism, unspecified; Z79.82 Long term (current) use of aspirin; E66.01 Morbid (severe) obesity due to excess calories; Z68.41 Body mass index [BMI] 40.0-44.9, adult; Z86.79 Personal history of other diseases of the circulatory system; Z85.828 Personal history of other malignant neoplasm of skin; Z95.2 Presence of prosthetic heart valve
CPT/HCPCS: 29848; 64718; 20526; 36415; 80048; J0690; J0702; J1040; J2371; J2405; J2704; J3010; J7120

== ENCOUNTER 2023-11-27 11:34 | Inpatient (IN) | payer MEDICARE, SELFPAY ==
[2023-11-27] VITALS (8 sets, daily range): BP systolic 131–190; BP diastolic 67–93; PULSE 59–71; RESP 12–18; TEMP 36.4–36.5; O2SAT 92–100; BMI 43.7
--- NOTE | ~2023-11-27 | CT_ITS ---
EXAMINATION: CTA brain carotid DATE: 11/27/2023 14:28 INDICATION: Syncope. Dizziness. TECHNIQUE: Computed tomographic angiography (CTA) of the head was performed without and with 100 mL O mnipaque-350 intravenous contrast. CTA of the neck was performed with intravenous contrast. Automated exposure control and iterative reconstruction technique were employed. The dose-length product was 1 666.00 mGy-cm. Maximum intensity projection and volume rendered 3D-reconstructions were created by paresh durán technologist on a separate workstation. COMPARISON: Head CT 02/28/2021 FINDINGS: HEAD CTA: There are scattered areas of low attenuation in the cerebral white matter, which is within normal limits for the patient's age. There is no intracranial hemorrhage, acute infarction, or abnorm al intracranial mass lesion. The ventricles are normal in size. The paranasal sinuses are clear. The orbits are normal. The mastoid air cells are normal. The vertebral arteries are codominant. There is no significant stenosis of basilar artery or the posterior cerebral arteries. There is no significant stenosis of the intracranial internal carotid arteries or anterior or middle cerebral arteries. Ante rior communicating artery is normal. The posterior communicating arteries are normal. There is no ane urysm. NECK CTA: There are no pathologically enlarged lymph nodes. There is an 11 mm nodule in right thyroid lobe, likely not clinically significant. There is no significant stenosis of the vertebral arteries. There is plaque in the proximal internal carotid arteries. There is 0% stenosis of the proximal righ t internal carotid artery relative to normal distal artery lumen diameter (NASCET criteria). There is 0% stenosis of the proximal left internal carotid artery relative to normal distal artery lumen diam eter. There is severe cervical spondylosis. IMPRESSION: 1. Normal aging brain. 2. No aneurysm or significant intracranial calcinosis. 3. 0% stenosis of the proximal internal carotid arteries relative to normal distal artery lumen diame ters (NASCET criteria). Reviewed, dictated and finalized at location E. RIENCED TRUCK DRIVER IMPRESSION: 1. Normal aging brain. 2. No aneurysm or significant intracranial calcinosis. 3. 0% stenosis of the proximal internal carotid arteries relative to normal dis aidan artery lumen diameters (NASCET criteria).
--- NOTE | ~2023-11-27 | US_ITS ---
EXAMINATION: US abdomen limited DATE: 12/04/2023 09:19 INDICATION: Elevated bilirubin TECHNIQUE: Multiple grayscale and Doppler ultrasound images of the abdomen were obtained. COMPARISON: CT abdomen pelvis dated 10/14/2022 FINDINGS: The pancreatic head and body are normal in appearance. The pancreatic tail is not visualized. Live r has normal echogenicity and contour, with a smooth surface. No liver lesion identified. No intrahep atic biliary duct dilation suspected. Portal venous flow was seen in the hepatopetal, normal directio n and has normal Doppler waveform. The gallbladder is normal in appearance. There is no cholelithias is. The common bile duct measures 8 mm, which is within normal limits for age. Sonographic Ibarra sig n was reported as negative by the reimbursement counselor. The visualized proximal inferior vena cava is normal. Likely age-related cortical thinning at the right kidney. No hydronephrosis. IMPRESSION: 1. Normal for age right upper quadrant ultrasound. Reviewed, dictated and finalized at location L.
--- NOTE | ~2023-11-27 | XR_ITS ---
EXAMINATION: XR chest 2V DATE: 12/02/2023 14:35 INDICATION: Shortness of breath. Wheezing. TECHNIQUE: Frontal and lateral views of the chest were obtained. COMPARISON: Chest 2 views 07/17/2012, CT abdomen and pelvis 10/14/2022. FINDINGS: There is no pneumonia, pleural effusion, or pneumothorax. The heart size is normal. There i s a stent graft in abdominal aorta. IMPRESSION: 1. No acute cardiopulmonary disease. Reviewed, dictated and finalized at location A.
--- NOTE | ~2023-11-27 | MR_ITS ---
EXAMINATION: MR brain/brain stem wo/w con DATE: 11/28/2023 11:28 INDICATION: Vertigo TECHNIQUE: Magnetic resonance imaging (MRI) of the brain and brainstem was performed without and with 20 mL Multihance intravenous contrast. Sequences included sagittal and axial T1-weighted SE, axial d iffusion-weighted FS SE, axial T2*-weighted GRE, axial 3D SWAN, axial T2-weighted FLAIR, and axial T2 -weighted FSE. Postcontrast axial and coronal T1-weighted SE was obtained. Apparent diffusion coeffic ient (ADC) maps were created. COMPARISON: Head CT and CT angiogram dated 12/07/2023 FINDINGS: There are no areas of restricted diffusion to suggest acute infarction. No intracranial hemorrhage or abnormal intracranial mass lesion. A few tiny foci of nonspecific increased T2-weighted signal inten sity in the cerebral white matter, predominantly involving the deep and periventricular white matter. There are no intraparenchymal signal abnormalities seen on the other pulse sequences. The ventricles are symmetric and normal in size. There are no abnormal extra-axial fluid collections. Flow voids ar e seen in the cerebral arteries on the T2-weighted sequences consistent with their expected patency. Visualized orbits and soft tissues are unremarkable. There are no areas of abnormal enhancement on th e post contrast images. IMPRESSION: 1. Normal aging brain. No acute intracranial process or abnormally enhancing brain lesions. Reviewed, dictated and finalized at location A. STOCK HANDLER IMPRESSION: 1. Normal aging brain. No acute intracranial process or abnormally enhancing br ain lesions.
--- NOTE | ~2023-11-27 | US_ITS ---
EXAMINATION: US venous doppler [facility] DATE: 11/28/2023 11:57 INDICATION: Bilateral lower limb swelling TECHNIQUE: Ross scale images without and with compression and Doppler images of the bilateral lower e xtremity veins were obtained. COMPARISON: 07/27/2012 FINDINGS: The right common femoral vein, profunda femoral vein, femoral vein, popliteal vein, peroneal trunk, p osterior tibial veins, and greater saphenous vein are patent. The left common femoral vein, profunda femoral vein, femoral vein, popliteal vein, peroneal trunk, po sterior tibial veins, and greater saphenous vein are patent. IMPRESSION: 1. Patent bilateral lower extremity veins. No evidence of deep venous thrombosis. Reviewed, dictated and finalized at location B. LER RENTAL CLERK IMPRESSION: 1. Patent bilateral lower extremity veins. No evidence of deep venous thrombosi s.
--- NOTE | 2023-11-27 11:38 | ECG_ITS ---
Measurements Intervals [place] Rate: 61 P: 226 NM: 193 QRS: 11 QRSD: 81 T: 19 QT: 424 QTc: 429 Interpretive Statements SINUS RHYTHM BASELINE ARTIFACT- I, II, III, AVR, AVL, AVF NORMAL ECG NO PREVIOUS ECG AVAILABLE FOR COMPARISON Electronically Signed On 11-27-2023 11:48:05 PMO MANAGER by Brayden Lantigua D.O.
[2023-11-27 12:01] LABS: Basophils Percent Auto 0.5 % (0.2-1.2); Eosinophils Absolute Auto 0.1 K/mm3 (0-0.3); Eosinophils Percent Auto 2.3 % (0-4.4); Hematocrit 41.4 % (37.0-47.0); Hemoglobin 13.3 g/dL (12.0-15.0); Immature Granulocyte Absolute 0.01 K/mm3 (0.00-0.031); Immature Granulocyte Percent A 0.2 % (0-0.5); Lymphocytes Percent Auto 22.6 % (18.3-44.2); Mean Corpuscular HGB Conc 32.1 g/dl (32-36); Mean Corpuscular Hemoglobin 29.9 pg (26-34); Mean Platelet Volume 11.1 fl (7.4-10.4); Monocytes Absolute Auto 0.4 K/mm3 (0.1-0.6); Monocytes Percent Auto 7.3 % (2.6-8.5); Neutrophils Absolute Auto 3.9 K/mm3 (1.3-6.7); Neutrophils Percent Auto 67.1 % (45.5-73.1); Platelet Count Result 148 k/mm3 (150-375); Red Blood Count 4.45 M/mm3 (4.2-5.4); Red Cell Distribution Width 14.7 % (11.5-14.5); White Blood Count 5.8 K/mm3 (4.5-10.0)
[2023-11-27 12:11] LABS: Alanine Aminotransferase 14 U/L (6-35); Albumin Level 3.6 g/dL (3.5-5.1); Alkaline Phosphatase 116 U/L (38-126); Anion Gap 7 mmol/L (8-16); Aspartate Amino Transferase 23 U/L (14-36); Bilirubin,Total 0.6 mg/dL (0.2-1.3); Blood Urea Nitrogen 23 mg/dL (7-17); Calcium 9.7 mg/dL (8.4-10.2); Carbon Dioxide 21 mmol/L (22-30); Chloride 112 mmol/L (98-107); Estimated CRCL calculation 60 ml/min; Estimated Glomerular Filt Rate > 60; Glucose 117 mg/dL (65-110); Sodium 140 mmol/L (137-145)
--- NOTE | 2023-11-27 12:43 | ED.DIZZY ---
HPI - Dizziness General Chief Complaint: Syncope Stated Complaint: dizziness, multiple syncopal episodes Time Seen by Provider: 11/27/23 12:37 Source: patient Mode of arrival: EMS Limitations: no limitations History of Present Illness HPI Narrative: Patient presents with dizziness. SHe states that she keeps having this occur to the point that she has to close her eyes because she feels like she might black out. Chief concern listed as syncopal episodes but patient denies any loss of consciousness or muscle tone. No falls recently (last fall was 2022). Lives at home by herself. Sensation that the world is spinning. She has not taken her medications today. Denies nausea. Usually ambulates with a walker. History of myocardial infarctions but no stents. No ear pain, tinnitus. Episodes of dizziness are not preceded by position changes but she does state that if she moves her head from one side or the other her symptoms start/worsen. Has a headache. Related Data Home Medications Medication Instructions Recorded Confirmed carvedilol 6.25 mg tablet 6.25 mg PO BID 11/27/23 11/27/23 furosemide 20 mg tablet 20 mg PO BID 11/27/23 11/27/23 levothyroxine 50 mcg tablet 50 mcg PO DAILY 11/27/23 11/27/23 valsartan 320 mg tablet 320 mg PO DAILY 11/27/23 11/27/23 Allergies Allergy/AdvReac Type Severity Reaction Status Date / Time diphenhydramine Allergy Hives Verified 11/27/23 18:55 [facility] Past Medical History Medical History (Updated 11/30/23 @ 11:43 by Mariza Radford MD) Aortic aneurysm Diastolic congestive heart failure Diverticulosis History of myocardial infarction No stents Hypertension Hypothyroidism Kidney stone Osteoarthritis Skin cancer Surgical History Surgical History History of vascular surgery Aortic sleeve. Family History Family History (Updated 11/27/23 @ 19:38 by Mena Sousa RN) Father Acute myocardial infarction Coronary artery disease Angina at rest Mother Pacemaker Social History Social History Social History: Surrogate medical decision maker: Ammon Hayes, roseanna. Code status: Full code. Smoking status: Never smoker Alcohol intake: never Substance use: never Substance use type: does not use Do You Feel Safe in your Home?: Yes Lack of Transportation: No Lack of Food: Sometimes True Current Housing: I Have Housing Concerned About Future Housing: No Difficulty Paying Gas/Electric Bills: No Difficulty Paying for Meds: No Currently Unemployed: No Education: High School Diploma/GED Difficulty w/ Childcare or Family Care: No Additional living arrangements comments: . Lives in her own home and [place]. Additional occupation/education comments: But keeper. Exam Narrative: GENERAL: Well-appearing, well-nourished, and in no acute distress. HEAD: Normocephalic, atraumatic. EYES: Non injected, non icteric. EOMI. No nystagmus. ENT: Nares clear, no rhinorrhea or epistaxis. NECK: Supple. CHEST: Speaking in complete sentences. No respiratory distress. HEART: Regular rate and rhythm. ABDOMEN: Soft, nondistended. EXTREMITIES: Normal range of motion. Moves all extremities x4. No edema. SKIN: Warm, dry, no rash. NEURO: No focal deficits. Speaks without dysarthria or aphasia. Alert and oriented . Sensation intact to touch throughout. PSYCH: Normal mood and affect. Course Vital Signs Vital signs: Vital Signs Temperature 97.5 F L 11/27/23 11:30 Pulse Rate 71 11/27/23 11:30 Respiratory Rate 17 11/27/23 11:30 Blood Pressure 165/82 H 11/27/23 11:30 Pulse Oximetry 100 11/27/23 11:30 Oxygen Delivery Room Air 11/27/23 11:30 Temperature 98.9 F 11/30/23 04:00 Pulse Rate 72 11/30/23 08:00 Respiratory Rate 16 11/30/23 04:00 Blood Pressure 129/61 11/30/23 04:00 Pulse Oximetry 97 11/30/23
[2023-11-27] MEDS: MECLIZINE HCL 25 MG TABLET PO ×2 (13:33→21:18)
[2023-11-27 14:13] LABS: Appearance Urine Cloudy (Clear); Bacteria Urine 1+ /hpf; Bilirubin Urine Negative (Negative); Blood Urine Negative (Negative); Color Urine Yellow (Yellow); Glucose Urine UA Negative (Negative); Ketones Urine Negative (Negative); Leukocyte Esterase Ur Negative LEU/UL (Negative); Need Manual Microscopic Reviewed; Nitrate Urine Negative (Negative); Protein Urine Negative (Negative); RBC Urine 0-2 /hpf (0-2); Specific Grav Ur 1.013 (1.001-1.035); Squamous Epithelial Cell Urine Many /hpf (Few); Urobilinogen Urine 0.2 mg/dL (<2.0); WBC Urine 21-50 /hpf
[2023-11-27 14:14] LABS: Add Urine Microscopic? YES
--- NOTE | 2023-11-27 16:17 | PC.NURSE ---
went into room to ambulate. Pt sat up, laid back down and complained about the room spinning and there was no way she was going to walk. pt stated if she tried to walk she would fall. Pt refused to walk.
--- NOTE | 2023-11-27 18:45 | ADMGEN ---
This patient, Jessica Sparks, was admitted to 2 Medical Room 251-01. Patient/family oriented to hospital policies and general routines including ID bracelet, bed and alarms, visiting hours, pain management, procedures, bathroom and other care routines, personal items, smoking policy, room service/diet, and visiting hours. Information on how to activate the Rapid Response Team has been discussed. Patient/Family are encouraged to report perceived risks to care and to ask questions if they do not understand what they are told or what they should do.
--- NOTE | 2023-11-27 18:54 | PM.IMHP ---
H&P: HPI History of Present Illness Date/Time: 11/27/23 21:30 Chief Complaint: Dizziness. Narrative: This is a very pleasant 88-year-old female with hypertension, diastolic congestive heart failure, aortic aneurysm status post aortic sleeve, and hypothyroidism who presented to the emergency department via EMS from home for evaluation of dizziness. The patient provides the following history. When trying to get above this morning she developed sudden onset of dizziness which she further qualifies as vertigo, reporting that she felt the room and herself spinning. She lay back down on the bed and that seemed to help somewhat but it recurred each time she lifted her head up or sat up. She has had 2 similar episodes in the past, each when her blood pressure was pretty high. She had URI symptoms at the end of September but does have nearly resolved. She denies associated visual changes, facial droop, difficulty speaking and swallowing, aural fullness, tinnitus, focal weakness, and paresthesias. No syncope or presyncope. She has not had fever, chills, or sweats. Denies falls. No recent change in medications. In the ED: She was afebrile on arrival. Blood pressures have been running in the 150s to 160s systolic. CMP and CBC did not show any significant findings with the only outlier is being a platelet count of 148, chloride 112, BUN 23, glucose 117. Urine was cloudy with 21 to 50 WBC and 1+ bacteria though many squamous cells were noted on microscopy and she has no symptoms to suggest UTI. CT of the head and neck showed normal aging brain and no significant stenosis, aneurysms, or vessel occlusions. She was given a dose of meclizine and is being admitted in this setting for further monitoring and workup. Review of Systems Review of Systems: Twelve systems were reviewed and are negative except for as per HPI. [facility] Past Medical History Medical History (Updated 11/28/23 @ 00:50 by Jia Winters PA-C) Aortic aneurysm Diastolic congestive heart failure Diverticulosis Hypertension Hypothyroidism Kidney stone Osteoarthritis Skin cancer Surgical History Surgical History (Updated 11/28/23 @ 00:50 by Jia Winters PA-C) History of vascular surgery Aortic sleeve. Family History Family History (Updated 11/27/23 @ 19:38 by Mena Sousa RN) Father Acute myocardial infarction Coronary artery disease Angina at rest Mother Pacemaker Social History Social History (Updated 11/28/23 @ 00:53 by Jia Winters PA-C) Social History: Surrogate medical decision maker: Ammon Hayes, son. Code status: Full code. Smoking status: Never smoker Alcohol intake: never Substance use: never Substance use type: does not use Do You Feel Safe in your Home?: Yes Lack of Transportation: No Lack of Food: Sometimes True Current Housing: I Have Housing Concerned About Future Housing: No Difficulty Paying Gas/Electric Bills: No Difficulty Paying for Meds: No Currently Unemployed: No Education: High School Diploma/GED Difficulty w/ Childcare or Family Care: No Additional living arrangements comments: . Lives in her own home and [place]. Additional occupation/education comments: But keeper. Meds Home Medications and Allergies Home Medications Medication Instructions Recorded Confirmed Type carvedilol 6.25 mg tablet 6.25 mg PO BID 11/27/23 11/27/23 History furosemide 20 mg tablet 20 mg PO BID 11/27/23 11/27/23 History levothyroxine 50 mcg tablet 50 mcg PO DAILY 11/27/23 11/27/23 History valsartan 320 mg tablet 320 mg PO DAILY 11/27/23 11/27/23 History Allergies Allergy/AdvReac Type Severity Reaction Status Date / Time diphenhydramine Allergy Hives Verified 11/27/23 18:55 Vital Signs Vital Signs - 24 hr 11/27/23 11:30 11/27/23 11:53 11/27/23 11:54 Temperature 97.5 F L Pulse Rate 71 65 64 Respiratory Rate 17 18 Blood Pressure 165/82 H 157/70 H Pulse Oximetry 100 100
[2023-11-28] VITALS (16 sets, daily range): BP systolic 102–137; BP diastolic 46–92; PULSE 56–84; RESP 16–18; TEMP 36.4–36.6; O2SAT 95–96
[2023-11-28] MEDS: ACETAMINOPHEN 325 MG TABLET 650 MG PO (00:37)
[2023-11-28] MEDS: FUROSEMIDE 20 MG TABLET PO ×2 (03:21→20:42)
[2023-11-28] MEDS: carvediloL 6.25 MG TABLET PO ×2 (03:21→17:48)
[2023-11-28 05:23] LABS: Hematocrit 37.3 % (37.0-47.0); Hemoglobin 11.6 g/dL (12.0-15.0); Mean Corpuscular HGB Conc 31.1 g/dl (32-36); Mean Corpuscular Hemoglobin 29.4 pg (26-34); Mean Corpuscular Volume 94.7 fl (80-100); Mean Platelet Volume 10.4 fl (7.4-10.4); Platelet Count Result 148 k/mm3 (150-375); Red Blood Count 3.94 M/mm3 (4.2-5.4); Red Cell Distribution Width 14.6 % (11.5-14.5); White Blood Count 5.5 K/mm3 (4.5-10.0)
[2023-11-28 05:38] LABS: Anion Gap 2 mmol/L (8-16); Blood Urea Nitrogen 17 mg/dL (7-17); Calcium 9.1 mg/dL (8.4-10.2); Carbon Dioxide 25 mmol/L (22-30); Chloride 113 mmol/L (98-107); Estimated CRCL calculation 62 ml/min; Estimated Glomerular Filt Rate > 60; Glucose 98 mg/dL (65-110); Magnesium 2.3 mg/dL (1.6-2.3); Potassium 3.9 mmol/L (3.4-5.0); Sodium 140 mmol/L (137-145)
[2023-11-28] MEDS: LEVOTHYROXINE SODIUM 50 MCG TABLET PO (05:55)
--- NOTE | 2023-11-28 08:21 | WPDNEURCNPN ---
Assessment and Plan Assessment and plan (1) Vertigo: Code(s): R42 - Dizziness and giddiness Status: Acute (2) Hypertension: Code(s): I10 - Essential (primary) hypertension Status: Acute Plan Jessica Sparks is a 88 year old female with a history of HTN, CHF, aortic aneurysm s/p aortic sleeve, and hypothyroidism presenting for evaluation of dizziness. MRI brain is negative for central cause. CTA brain/carotid is negative for any significant stenosis or occlusion. Etiology likely related to inner ear/vestibular dysfunction. - Recommend PT for vestibular therapy Consult date: 11/28/23 Reason for consult: Dizziness HPI: Jessica Sparks is a 88 year old female with a history of HTN, CHF, aortic aneurysm s/p aortic sleeve, and hypothyroidism presenting for evaluation of dizziness. Patient presented to [facility] ED on 10/29/23/ She developed sudden onset dizziness in the morning. She felt the room spinning. 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 She has had similar episodes in the past, when her BP was pretty high. In the ER her blood pressure ranged from 150-160s. CT head showed no acute changes. CTA brain/carotid was negative for any significant stenosis or occlusion. UA was cloudy but negative for LE and nitrites. MRI brain is normal. Review of Systems Review of Systems: All systems reviewed & are unremarkable except as noted in HPI and below PMFSH Past Medical History Medical History Aortic aneurysm Diastolic congestive heart failure Diverticulosis Hypertension Hypothyroidism Kidney stone Osteoarthritis Skin cancer Surgical History Surgical History History of vascular surgery Aortic sleeve. Family History Family History (Updated 11/27/23 @ 19:38 by Mena Sousa RN) Father Acute myocardial infarction Coronary artery disease Angina at rest Mother Pacemaker Social History Social History Social History: Surrogate medical decision maker: Ammon Hayes, son. Code status: Full code. Smoking status: Never smoker Alcohol intake: never Substance use: never Substance use type: does not use Do You Feel Safe in your Home?: Yes Lack of Transportation: No Lack of Food: Sometimes True Current Housing: I Have Housing Concerned About Future Housing: No Difficulty Paying Gas/Electric Bills: No Difficulty Paying for Meds: No Currently Unemployed: No Education: High School Diploma/GED Difficulty w/ Childcare or Family Care: No Additional living arrangements comments: . Lives in her own home and [place]. Additional occupation/education comments: But keeper. Meds Home Medications and Allergies Home Medications Medication Instructions Recorded Confirmed Type carvedilol 6.25 mg tablet 6.25 mg PO BID 11/27/23 11/27/23 History furosemide 20 mg tablet 20 mg PO BID 11/27/23 11/27/23 History levothyroxine 50 mcg tablet 50 mcg PO DAILY 11/27/23 11/27/23 History valsartan 320 mg tablet 320 mg PO DAILY 11/27/23 11/27/23 History Allergies Allergy/AdvReac Type Severity Reaction Status Date / Time diphenhydramine Allergy Hives Verified 11/27/23 18:55 Vital Signs Vital Signs - 24 hr 11/27/23 11:30 11/27/23 11:53 11/27/23 11:54 Temperature 36.4 C L Pulse Rate 71 65 64 Respiratory Rate 17 18 Blood Pressure 165/82 H 157/70 H Pulse Oximetry 100 100 Oxygen Delivery Room Air 11/27/23 13:49 11/27/23 15:40 11/27/23 20:06 Temperature 36.5 C Pulse Rate 62 61 59 L Respiratory Rate 16 12 18 Blood Pressure 161/71 H 131/67 190/93 H Pulse Oximetry 97 100 92 Oxygen Delivery 11/27/23 20:19 11/27/23 20:00 11/28/23 00:42 Temperature Pulse Rate 65 Respiratory Rate Blood Pressure 137/92 H Pulse Oximetry Oxygen Delivery Room Air
[2023-11-28] MEDS: MECLIZINE HCL 25 MG TABLET PO ×2 (09:07→20:42)
--- NOTE | 2023-11-28 15:03 | PM.DS ---
DS: Admitting Diagnosis Discharge Date 11/28/2023 Admitting Diagnosis Vertigo DS: Discharge Diagnosis Discharge Diagnosis (1) Vertigo: Code(s): R42 - Dizziness and giddiness Status: Acute (2) Hypertension: Code(s): I10 - Essential (primary) hypertension Status: Acute (3) Diastolic congestive heart failure: Code(s): I50.30 - Unspecified diastolic (congestive) heart failure Status: Acute (4) Hypothyroidism: Code(s): E03.9 - Hypothyroidism, unspecified Status: Acute Plan VERTIGO The patient presented to the emergency department via EMS from home for evaluation of vertigo as detailed in HPI. Labs, imaging, EKG, and all reports were personally reviewed. Suspect benign paroxysmal positional vertigo given at sudden-onset and worsening symptoms with minimal movement. She has risk factors for stroke however and brain MRI has been ordered to rule out stroke. Her blood pressures have been running high but not significantly so it is unlikely that this is the cause of her symptoms. Meclizine available as needed. Her antihypertensives will be continued. She has significant lower extremity edema which she states is actually better than it has been; continue furosemide and elevate extremities. Lower extremity venous Doppler ultrasounds ordered to rule out possible DVT. Continue levothyroxine and check TSH. The rest of her home medications will be reviewed and resumed as appropriate. DS: Summary Hospital Course Reason for hospitalization: VERTIGO Hospital Course: (Medical Record) Chief Complaint: Dizziness. Narrative: This is a very pleasant 88-year-old female with hypertension, diastolic congestive heart failure, aortic aneurysm status post aortic sleeve, and hypothyroidism who presented to the emergency department via EMS from home for evaluation of dizziness. The patient provides the following history. When trying to get above this morning she developed sudden onset of dizziness which she further qualifies as vertigo, reporting that she felt the room and herself spinning. She lay back down on the bed and that seemed to help somewhat but it recurred each time she lifted her head up or sat up. She has had 2 similar episodes in the past, each when her blood pressure was pretty high. She had URI symptoms at the end of September but does have nearly resolved. She denies associated visual changes, facial droop, difficulty speaking and swallowing, aural fullness, tinnitus, focal weakness, and paresthesias. No syncope or presyncope. She has not had fever, chills, or sweats. Denies falls. No recent change in medications. In the ED: She was afebrile on arrival. Blood pressures have been running in the 150s to 160s systolic. CMP and CBC did not show any significant findings with the only outlier is being a platelet count of 148, chloride 112, BUN 23, glucose 117. Urine was cloudy with 21 to 50 WBC and 1+ bacteria though many squamous cells were noted on microscopy and she has no symptoms to suggest UTI. CT of the head and neck showed normal aging brain and no significant stenosis, aneurysms, or vessel occlusions. She was given a dose of meclizine and is being admitted in this setting for further monitoring and workup. 11/27: DISCHARGED Status at Discharge Functional status at discharge: uses cane/walker Overall status at discharge: patient is progressing back to baseline Time Spent with Patient Time attestation: Total time spent providing and/or coordinating discharge services: Time spent: Less than 30 minutes Exam Narrative: General: Well-developed, nontoxic-appearing female in the semi-Schumacher position in bed. Weight: 130.5 kg. BMI: 43.7. HEENT: Normocephalic, atraumatic. PERRL, EOMI. Sclera anicteric. Oral mucosa moist. Neck: Supple. No obvious carotid bruits. Respiratory: Lungs are clear to auscultation bilaterally. Cardiovascular: Regular rate and rhythm with S1-S2. Gastrointestinal: Abdomen is
--- NOTE | 2023-11-28 18:02 | PM.IMPN ---
Progress Note: A&P Assessment and Plan (1) Vertigo: Code(s): R42 - Dizziness and giddiness Status: Acute (2) Hypertension: Code(s): I10 - Essential (primary) hypertension Status: Acute (3) Diastolic congestive heart failure: Code(s): I50.30 - Unspecified diastolic (congestive) heart failure Status: Acute (4) Hypothyroidism: Code(s): E03.9 - Hypothyroidism, unspecified Status: Acute Plan Dizziness/Vertigo Orthostatics negative CT no acute issues MRI with normal aging patterns Neurology consulted PT with vestibular meclazine BID Hypothyroidism TSH resumed levothyroxine HTN stable/Soft BP resumed home medications monitor per unit protocol will lower her carvedilol too 3.125 Valsartan switched to 160mg BID Code status: Full code per patient DVT prophylaxis: SCD Stress ulcer prophylaxis: NA PT/OT notes: PT/OT Pending Disposition: Patient continues admission to the medical unit for continued dizziness likely secondary to meclizine however patient's BP has been running soft the static negative. PT/OT pending for recommendation family has some concern of patient returning home alone while still symptomatic may need a [facility] facility for continued PT OT before returning home with home health. Time Spent With Patient Time with patient: 25 - 35 minutes Subjective Date/time seen: 11/28/23 18:02 Interval history: (Medical Record) Chief Complaint: Dizziness. Narrative: This is a very pleasant 88-year-old female with hypertension, diastolic congestive heart failure, aortic aneurysm status post aortic sleeve, and hypothyroidism who presented to the emergency department via EMS from home for evaluation of dizziness. The patient provides the following history. When trying to get above this morning she developed sudden onset of dizziness which she further qualifies as vertigo, reporting that she felt the room and herself spinning. She lay back down on the bed and that seemed to help somewhat but it recurred each time she lifted her head up or sat up. She has had 2 similar episodes in the past, each when her blood pressure was pretty high. She had URI symptoms at the end of September but does have nearly resolved. She denies associated visual changes, facial droop, difficulty speaking and swallowing, aural fullness, tinnitus, focal weakness, and paresthesias. No syncope or presyncope. She has not had fever, chills, or sweats. Denies falls. No recent change in medications. In the ED: She was afebrile on arrival. Blood pressures have been running in the 150s to 160s systolic. CMP and CBC did not show any significant findings with the only outlier is being a platelet count of 148, chloride 112, BUN 23, glucose 117. Urine was cloudy with 21 to 50 WBC and 1+ bacteria though many squamous cells were noted on microscopy and she has no symptoms to suggest UTI. CT of the head and neck showed normal aging brain and no significant stenosis, aneurysms, or vessel occlusions. She was given a dose of meclizine and is being admitted in this setting for further monitoring and workup. 11/27: Patient still had complaints of dizziness today worse with movement. MRI showed no acute issues with normal aging pattern. Patient was seen my neurology who recommended PT with vestibular. Inititial plan was to discharge home with home health however patient family did not feel comfortable patient going home alone at this time and has requested possible SNF for continued PT/OT. Currently waiting on recs from PT/OT and will consult CC for assistance. Review of Systems Review of Systems: Twelve systems were reviewed and are negative except for as per HPI. All systems reviewed & are unremarkable except as noted in HPI and below Exam Narrative: Physical Exam: GENERAL: Alert and oriented x 3. No acute distress. Well-nourished. EYES: EOMI. No scleral icte
[2023-11-29] VITALS (10 sets, daily range): BP systolic 107–115; BP diastolic 53–64; PULSE 54–81; RESP 16–20; TEMP 36.4–37.5; O2SAT 94–99
[2023-11-29] MEDS: LEVOTHYROXINE SODIUM 50 MCG TABLET PO (05:40)
[2023-11-29] MEDS: VALSARTAN 160 MG TABLET PO (08:07)
[2023-11-29] MEDS: MECLIZINE HCL 25 MG TABLET PO ×2 (08:08→20:34)
[2023-11-29] MEDS: carvediloL 3.125 MG TABLET PO ×2 (08:08→17:04)
[2023-11-29] MEDS: FUROSEMIDE 20 MG TABLET PO ×2 (08:08→17:04)
[2023-11-29] MEDS: ACETAMINOPHEN 325 MG TABLET 650 MG PO (08:14)
[2023-11-29 09:02] LABS: Hematocrit 39.6 % (37.0-47.0); Hemoglobin 12.3 g/dL (12.0-15.0); Mean Corpuscular HGB Conc 31.1 g/dl (32-36); Mean Corpuscular Hemoglobin 29.4 pg (26-34); Mean Corpuscular Volume 94.5 fl (80-100); Mean Platelet Volume 10.5 fl (7.4-10.4); Platelet Count Result 155 k/mm3 (150-375); Red Blood Count 4.19 M/mm3 (4.2-5.4); White Blood Count 5.8 K/mm3 (4.5-10.0)
[2023-11-29 09:14] LABS: Anion Gap 3 mmol/L (8-16); Blood Urea Nitrogen 17 mg/dL (7-17); Carbon Dioxide 26 mmol/L (22-30); Chloride 108 mmol/L (98-107); Estimated CRCL calculation 61 ml/min; Estimated Glomerular Filt Rate > 60; Glucose 111 mg/dL (65-110); Sodium 137 mmol/L (137-145)
--- NOTE | 2023-11-29 11:35 | PM.IMPN ---
Progress Note: A&P Assessment and Plan (1) Vertigo: Code(s): R42 - Dizziness and giddiness Status: Acute (2) Hypertension: Code(s): I10 - Essential (primary) hypertension Status: Acute (3) Diastolic congestive heart failure: Code(s): I50.30 - Unspecified diastolic (congestive) heart failure Status: Acute (4) Hypothyroidism: Code(s): E03.9 - Hypothyroidism, unspecified Status: Acute Plan Dizziness/Vertigo Orthostatics negative CT no acute issues MRI with normal aging patterns Neurology consulted PT with vestibular meclazine BID Hypothyroidism TSH resumed levothyroxine HTN has been hypotensive during admission stable/Soft BP resumed home medications monitor per unit protocol will lower her carvedilol too 3.125 Valsartan switched to 160mg daily Code status: Full code per patient DVT prophylaxis: SCD Stress ulcer prophylaxis: NA PT/OT notes: PT/OT vestibular Disposition: Patient continues admission to the medical unit for continued dizziness likely secondary to meclizine however patient's BP has been running soft the static negative. PT/OT pending for recommendation family has some concern of patient returning home alone while still symptomatic may need a assisted facility for continued PT OT before returning home with home health. Time Spent With Patient Time with patient: 15 - 25 minutes Subjective Date/time seen: 11/29/23 11:35 Interval history: (Medical Record) Chief Complaint: Dizziness. Narrative: This is a very pleasant 88-year-old female with hypertension, diastolic congestive heart failure, aortic aneurysm status post aortic sleeve, and hypothyroidism who presented to the emergency department via EMS from home for evaluation of dizziness. The patient provides the following history. When trying to get above this morning she developed sudden onset of dizziness which she further qualifies as vertigo, reporting that she felt the room and herself spinning. She lay back down on the bed and that seemed to help somewhat but it recurred each time she lifted her head up or sat up. She has had 2 similar episodes in the past, each when her blood pressure was pretty high. She had URI symptoms at the end of September but does have nearly resolved. She denies associated visual changes, facial droop, difficulty speaking and swallowing, aural fullness, tinnitus, focal weakness, and paresthesias. No syncope or presyncope. She has not had fever, chills, or sweats. Denies falls. No recent change in medications. In the ED: She was afebrile on arrival. Blood pressures have been running in the 150s to 160s systolic. CMP and CBC did not show any significant findings with the only outlier is being a platelet count of 148, chloride 112, BUN 23, glucose 117. Urine was cloudy with 21 to 50 WBC and 1+ bacteria though many squamous cells were noted on microscopy and she has no symptoms to suggest UTI. CT of the head and neck showed normal aging brain and no significant stenosis, aneurysms, or vessel occlusions. She was given a dose of meclizine and is being admitted in this setting for further monitoring and workup. 11/27: Patient still had complaints of dizziness today worse with movement. MRI showed no acute issues with normal aging pattern. Patient was seen my neurology who recommended PT with vestibular. Inititial plan was to discharge home with home health however patient family did not feel comfortable patient going home alone at this time and has requested possible SNF for continued PT/OT. Currently waiting on recs from PT/OT and will consult CC for assistance. 11/28: Patient continued to have dizziness and difficulty standing. PT/OT will be working with her today and providing vestibular therapy. Patient BP was also soft and bradycardia overnight, decreased carvedilol and valsartan could be partially responsible to patients dizziness.
--- NOTE | 2023-11-29 15:11 | PC.NURSE ---
Patient resting in bed with call light in reach. She is very cooperative. Family present at bedside in the afternoon. Questions and concerns addressed. Patient is hopefully therapy treatment will be effective so she can go home with home health.
[2023-11-30] VITALS (7 sets, daily range): BP systolic 101–129; BP diastolic 46–61; PULSE 70–89; RESP 16–20; TEMP 37.2–37.4; O2SAT 91–97
--- NOTE | 2023-11-30 03:03 | PC.NURSE ---
Daylight Savings Time For Daylight Savings Time Ending in the Fall - Clocks are moved back. For Daylight Savings Time Beginning in the Spring - Clocks are moved ahead. For [facility], the time of change occurs at 0200 hrs. Time is taken from the websphere process server developer. This entry on the patient's chart recognizes the change in time reflected during documentation. Example: 2 entries for vital signs may be charted for 0200 hrs.
[2023-11-30] MEDS: LEVOTHYROXINE SODIUM 50 MCG TABLET PO (06:36)
--- NOTE | 2023-11-30 07:55 | P.PNIM_ITS ---
Progress Note: A&P Assessment and Plan (1) Vertigo: Code(s): R42 - Dizziness and giddiness Status: Acute (2) Hypertension: Code(s): I10 - Essential (primary) hypertension Status: Acute (3) Diastolic congestive heart failure: Code(s): I50.30 - Unspecified diastolic (congestive) heart failure Status: Acute (4) Hypothyroidism: Code(s): E03.9 - Hypothyroidism, unspecified Status: Acute (5) Left knee pain: Code(s): M25.562 - Pain in left knee Status: Acute Plan Dizziness/Vertigo * Orthostatics negative * CT no acute issues * MRI with normal aging patterns * Neurology consulted * PT with vestibular * meclazine BID Hypothyroidism * TSH * resumed levothyroxine HTN has been hypotensive during admission-Improving * stable/Soft BP * resumed home medications * monitor per unit protocol * will lower her carvedilol too 3.125 * Valsartan switched to 160mg daily Bradycardia-Intermittantly * Episodes of bradycardia at night while sleeping * recommend sleep study O/P to evaluate for KARTIK LT Knee pain secondary to OA * Pain medication added * Doppler negative for DVT * PT/OT Code status: Full code per patient DVT prophylaxis: SCD Stress ulcer prophylaxis: NA PT/OT notes: PT/OT vestibular Disposition: Patient continues admission to the medical unit for continued dizziness likely secondary to meclizine however patient's BP has been running soft the static negative. PT/OT pending for recommendation family has some concern of patient returning home alone while still symptomatic may need a [facility] facility for continued PT OT before returning home with home health. Time Spent With Patient Time with patient: 15 - 25 minutes Subjective Date/time seen: 11/30/23 07:55 Interval history: (Medical Record) Chief Complaint: Dizziness. Narrative: This is a very pleasant 88-year-old female with hypertension, diastolic congestive heart failure, aortic aneurysm status post aortic sleeve, and hypothyroidism who presented to the emergency department via EMS from home for evaluation of dizziness. The patient provides the following history. When trying to get above this morning she developed sudden onset of dizziness which she further qualifies as vertigo, reporting that she felt the room and herself spinning. She lay back down on the bed and that seemed to help somewhat but it recurred each time she lifted her head up or sat up. She has had 2 similar episodes in the past, each when her blood pressure was pretty high. She had URI symptoms at the end of September but does have nearly resolved. She denies associated visual changes, facial droop, difficulty speaking and swallowing, aural fullness, tinnitus, focal weakness, and paresthesias. No syncope or presyncope. She has not had fever, chills, or sweats. Denies falls. No recent change in medications. In the ED: She was afebrile on arrival. Blood pressures have been running in the 150s to 160s systolic. CMP and CBC did not show any significant findings with the only outlier is being a platelet count of 148, chloride 112, BUN 23, glucose 117. Urine was cloudy with 21 to 50 WBC and 1+ bacteria though many squamous cells were noted on microscopy and she has no symptoms to suggest UTI. CT of the head and neck showed normal aging brain and no significant stenosis, aneurysms, or vessel occlusions. She was given a dose of meclizine and is being admitted in this setting for further monitoring and workup.
[2023-11-30] MEDS: FUROSEMIDE 20 MG TABLET PO ×2 (09:22→16:33)
[2023-11-30] MEDS: carvediloL 3.125 MG TABLET PO ×2 (09:22→16:33)
[2023-11-30] MEDS: VALSARTAN 160 MG TABLET PO (09:22)
[2023-11-30] MEDS: MECLIZINE HCL 25 MG TABLET PO ×2 (09:22→20:38)
[2023-11-30] MEDS: HYDROcodone/acetaminophen (*CRX) 5-325 MG TABLET 1 TAB PO ×2 (13:30→18:06)
[2023-12-01] VITALS (12 sets, daily range): BP systolic 86–139; BP diastolic 28–55; PULSE 72–79; RESP 19–20; TEMP 36.7–37.2; O2SAT 96–97
--- NOTE | 2023-12-01 | ECHO_ITS ---
Patient Info Name: Jessica Sparks Age: 88 years : 1935 Gender: Female Ht: 68 in Wt: 282 lbs BSA: 2.54 m2 HR: 68 bpm BP: 139 / 55 mmHg Heart Rhythm: Sinus Rhythm Technical Quality: Fair Exam Date: 12/01/2023 2:24 PM Exam Location: Echo Lab Patient Status: Inpatient Admit Date: 11/29/2023 Staff Ordering Physician: Holley Ramirez APRN Facilities Maintenance Assistant: Ruby Hill RDCS Attending Provider: Tristin Hernandez MD Referring Physician: James MATT; Exam Type: CA echo dop color flow w con Study Info Indications - hypotension/bradycardia Complete two-dimensional, color flow and Doppler transthoracic echocardiogram is performed with contrast to opacify the left ventricle and to improve the deliniation of the left ventricle endocardial borders. Contrast/Agitated Saline Contrast/Ag. Saline: Definity Amount: 2.00 ml Administered By: Ruby Hill RDCS Existing IV Access: Yes IV Access Condition: patent with no signs of infiltration Summary 1. Definity contrast administered improved wall motion interpretation. 2. Left ventricular chamber dimension is normal. 3. Left ventricular systolic function is normal, estimated at 65-70%. 4. The left ventricular diastolic function is grade I diastolic dysfunction. 5. E/e' 8 is minimally elevated. 6. There is mild tricuspid valve regurgitation. 7. No pulmonary hypertension, estimated pulmonary arterial systolic pressure is 36 mmHg. Left Ventricle Definity contrast administered improved wall motion interpretation. E/e' 8 is minimally elevated. Left ventricular chamber dimension is normal. Left ventricular systolic function is normal, estimated at 65-70%. The left ventricular diastolic function is grade I diastolic dysfunction. Right Ventricle Right ventricular systolic function is normal and with normal TAPSE 2.5 cm. Right ventricular chamber dimension is normal. Left Atria Left atrial chamber dimension is normal. Right Atria Right atrial chamber dimension is normal. Aortic Valve The aortic valve is not well visualized. Cannot determine number of aortic valve leaflets. There is no aortic valve stenosis based on valve area and gradients. There is no aortic valve regurgitation. Pulmonic Valve There is no pulmonic regurgitation. Mitral Valve There is no mitral valve stenosis. There is no mitral valve regurgitation. Tricuspid Valve There is mild tricuspid valve regurgitation. No pulmonary hypertension, estimated pulmonary arterial systolic pressure is 36 mmHg. Pericardium/Pleural There is no pericardial effusion. Inferior Vena Cava Normal inferior vena cava with >50% collapse upon inspiration consistent with normal right atrial pressure, 5 mmHg. Aorta The aortic root size at the sinus of Valsalva is normal. Left Ventricular Outflow Tract Name Value Normal LVOT 2D LVOT Diameter 2.02 cm LVOT Doppler LVOT Peak Gradient 6 mmHg LVOT Mean Gradient 3 mmHg LVOT VTI 22.36 cm LVOT VTI/AV VTI Ratio 0.73 LVOT Stroke Volume 71.58 ml LVOT CO
[2023-12-01 05:24] LABS: Hematocrit 40.8 % (37.0-47.0); Immature Platelet Fraction Pct 3.7 % (0.9-11.2); Mean Corpuscular HGB Conc 31.9 g/dl (32-36); Mean Corpuscular Hemoglobin 30.2 pg (26-34); Mean Corpuscular Volume 94.9 fl (80-100); Mean Platelet Volume 10.8 fl (7.4-10.4); Platelet Count Result 141 k/mm3 (150-375); Red Cell Distribution Width 14.6 % (11.5-14.5); White Blood Count 8.7 K/mm3 (4.5-10.0)
[2023-12-01 05:35] LABS: Alanine Aminotransferase 22 U/L (6-35); Albumin Level 3.3 g/dL (3.5-5.1); Alkaline Phosphatase 93 U/L (38-126); Anion Gap 5 mmol/L (8-16); Aspartate Amino Transferase 32 U/L (14-36); Bilirubin,Total 1.6 mg/dL (0.2-1.3); Blood Urea Nitrogen 16 mg/dL (7-17); Carbon Dioxide 25 mmol/L (22-30); Chloride 104 mmol/L (98-107); Estimated CRCL calculation 61 ml/min; Estimated Glomerular Filt Rate > 60; Glucose 119 mg/dL (65-110); Sodium 134 mmol/L (137-145)
[2023-12-01] MEDS: LEVOTHYROXINE SODIUM 50 MCG TABLET PO (06:44)
[2023-12-01] MEDS: VALSARTAN 160 MG TABLET PO (10:11)
[2023-12-01] MEDS: FUROSEMIDE 20 MG TABLET PO (10:11)
[2023-12-01] MEDS: carvediloL 3.125 MG TABLET PO (10:11)
[2023-12-01] MEDS: MECLIZINE HCL 25 MG TABLET PO ×2 (10:12→20:47)
[2023-12-01] MEDS: ACETAMINOPHEN 325 MG TABLET 650 MG PO ×2 (10:15→20:53)
--- NOTE | 2023-12-01 11:21 | PM.IMPN ---
Progress Note: A&P Assessment and Plan (1) Vertigo: Code(s): R42 - Dizziness and giddiness Status: Acute (2) Hypertension: Code(s): I10 - Essential (primary) hypertension Status: Acute (3) Diastolic congestive heart failure: Code(s): I50.30 - Unspecified diastolic (congestive) heart failure Status: Acute (4) Hypothyroidism: Code(s): E03.9 - Hypothyroidism, unspecified Status: Acute (5) Left knee pain: Code(s): M25.562 - Pain in left knee Status: Acute Plan Dizziness/Vertigo Orthostatics negative CT no acute issues MRI with normal aging patterns Neurology consulted PT with vestibular meclazine BID Hypothyroidism TSH resumed levothyroxine HTN has been hypotensive during admission-Improving stable/Soft BP resumed home medications monitor per unit protocol will lower her carvedilol too 3.125 Valsartan switched to 160mg daily Bradycardia-Intermittantly Episodes of bradycardia at night while sleeping recommend sleep study O/P to evaluate for KARTIK LT Knee pain secondary to OA Pain medication added Doppler negative for DVT PT/OT Code status: Full code per patient DVT prophylaxis: SCD Stress ulcer prophylaxis: NA PT/OT notes: PT/OT vestibular Disposition: Patient continues admission to the medical unit for continued dizziness likely secondary to meclizine however patient's BP has been running soft the static negative. PT/OT pending for recommendation family has some concern of patient returning home alone while still symptomatic may need a group home facility for continued PT OT before returning home with home health. Time Spent With Patient Time with patient: 15 - 25 minutes Subjective Date/time seen: 12/01/23 11:21 Interval history: (Medical Record) Chief Complaint: Dizziness. Narrative: This is a very pleasant 88-year-old female with hypertension, diastolic congestive heart failure, aortic aneurysm status post aortic sleeve, and hypothyroidism who presented to the emergency department via EMS from home for evaluation of dizziness. The patient provides the following history. When trying to get above this morning she developed sudden onset of dizziness which she further qualifies as vertigo, reporting that she felt the room and herself spinning. She lay back down on the bed and that seemed to help somewhat but it recurred each time she lifted her head up or sat up. She has had 2 similar episodes in the past, each when her blood pressure was pretty high. She had URI symptoms at the end of September but does have nearly resolved. She denies associated visual changes, facial droop, difficulty speaking and swallowing, aural fullness, tinnitus, focal weakness, and paresthesias. No syncope or presyncope. She has not had fever, chills, or sweats. Denies falls. No recent change in medications. In the ED: She was afebrile on arrival. Blood pressures have been running in the 150s to 160s systolic. CMP and CBC did not show any significant findings with the only outlier is being a platelet count of 148, chloride 112, BUN 23, glucose 117. Urine was cloudy with 21 to 50 WBC and 1+ bacteria though many squamous cells were noted on microscopy and she has no symptoms to suggest UTI. CT of the head and neck showed normal aging brain and no significant stenosis, aneurysms, or vessel occlusions. She was given a dose of meclizine and is being admitted in this setting for further monitoring and workup. 11/27: Patient still had complaints of dizziness today worse with movement. MRI showed no acute issues with normal aging pattern. Patient was seen my neurology who recommended PT with vestibular. Inititial plan was to discharge home with home health however patient family did not feel comfortable patient going home alone at this time and has requested possible SNF for continued PT/OT. Currently waiting on recs from PT/OT and will co
--- NOTE | 2023-12-01 12:16 | PM.DS ---
DS: Admitting Diagnosis Discharge Date 11/30/2020 Admitting Diagnosis Vertigo DS: Discharge Diagnosis Discharge Diagnosis (1) Vertigo: Code(s): R42 - Dizziness and giddiness Status: Acute (2) Hypertension: Code(s): I10 - Essential (primary) hypertension Status: Acute (3) Diastolic congestive heart failure: Code(s): I50.30 - Unspecified diastolic (congestive) heart failure Status: Acute (4) Hypothyroidism: Code(s): E03.9 - Hypothyroidism, unspecified Status: Acute (5) Left knee pain: Code(s): M25.562 - Pain in left knee Status: Acute Plan Dizziness/Vertigo Orthostatics negative CT no acute issues MRI with normal aging patterns Neurology consulted PT with vestibular meclazine BID Hypothyroidism TSH resumed levothyroxine HTN has been hypotensive during admission-Improving stable/Soft BP resumed home medications monitor per unit protocol will lower her carvedilol too 3.125 Valsartan switched to 160mg daily Bradycardia-Intermittantly Episodes of bradycardia at night while sleeping recommend sleep study O/P to evaluate for KARTIK LT Knee pain secondary to OA Pain medication added Doppler negative for DVT PT/OT PT/OT notes: PT/OT vestibular Disposition: Patient discharged to SNF for continued PT/OT DS: Summary Hospital Course Reason for hospitalization: Vertigo Hospital Course: (Medical Record) Chief Complaint: Dizziness. Narrative: This is a very pleasant 88-year-old female with hypertension, diastolic congestive heart failure, aortic aneurysm status post aortic sleeve, and hypothyroidism who presented to the emergency department via EMS from home for evaluation of dizziness. The patient provides the following history. When trying to get above this morning she developed sudden onset of dizziness which she further qualifies as vertigo, reporting that she felt the room and herself spinning. She lay back down on the bed and that seemed to help somewhat but it recurred each time she lifted her head up or sat up. She has had 2 similar episodes in the past, each when her blood pressure was pretty high. She had URI symptoms at the end of September but does have nearly resolved. She denies associated visual changes, facial droop, difficulty speaking and swallowing, aural fullness, tinnitus, focal weakness, and paresthesias. No syncope or presyncope. She has not had fever, chills, or sweats. Denies falls. No recent change in medications. In the ED: She was afebrile on arrival. Blood pressures have been running in the 150s to 160s systolic. CMP and CBC did not show any significant findings with the only outlier is being a platelet count of 148, chloride 112, BUN 23, glucose 117. Urine was cloudy with 21 to 50 WBC and 1+ bacteria though many squamous cells were noted on microscopy and she has no symptoms to suggest UTI. CT of the head and neck showed normal aging brain and no significant stenosis, aneurysms, or vessel occlusions. She was given a dose of meclizine and is being admitted in this setting for further monitoring and workup. 11/27: Patient still had complaints of dizziness today worse with movement.? MRI showed no acute issues with normal aging pattern.? Patient was seen my neurology who recommended PT with vestibular.? Inititial plan was to discharge home with home health however patient family did not feel comfortable patient going home alone at this time and has requested possible SNF for continued PT/OT.? Currently waiting on recs from PT/OT and will consult CC for assistance. 11/28: Patient continued to have dizziness and difficulty standing.? PT/OT will be working with her today and providing vestibular therapy.? Patient BP was also soft and bradycardia overnight, decreased carvedilol and valsartan could be partially responsible to patients dizziness.? 11/29: Patient BP improved and dizziness improving with therapy, carin
[2023-12-01] MEDS: SODIUM CHLORIDE 0.9% IV 500 ML IV CONT (14:21)
[2023-12-01] MEDS: PERFLUTREN LIPID MICROSPHERES 1.5 ML VIAL DILUTED TO 10 ML TOTAL VOLUME IV PUSH (16:02)
--- NOTE | 2023-12-01 16:31 | IVDEFINITY ---
Prior to administration of IV Definity the patient was educated on the risks and benefits of the imaging enhancing agent including potential adverse side effects. The patient verbalized understanding. Allergies were verified. No exclusion criteria were identified and at least one of the following inclusion criteria were met: 1) physician request, 2) patient technically difficult to image (per the [place] [employer] guidelines of two or more segments not discernable within the apical view), or 3) questionable left ventricular function. ?
--- NOTE | 2023-12-01 18:21 | PC.NURSE ---
Per agnes Swann to hold 1700 dose of lasix and coreg r/t blood pressure drop this morning.
[2023-12-02] VITALS (15 sets, daily range): BP systolic 104–167; BP diastolic 46–134; PULSE 65–85; RESP 16–20; TEMP 36.8–37.5; O2SAT 94–99
[2023-12-02] MEDS: LEVOTHYROXINE SODIUM 50 MCG TABLET PO (06:08)
[2023-12-02] MEDS: carvediloL 3.125 MG TABLET PO ×2 (08:44→16:40)
[2023-12-02] MEDS: MECLIZINE HCL 25 MG TABLET PO ×2 (08:44→20:34)
[2023-12-02] MEDS: FUROSEMIDE 20 MG TABLET PO ×2 (08:44→16:40)
[2023-12-02] MEDS: VALSARTAN 160 MG TABLET PO (08:45)
[2023-12-02] MEDS: SODIUM CHLORIDE 0.9% IV 500 ML IV CONT (12:18)
[2023-12-02 12:43] LABS: Uric Acid 6.8 mg/dL (2.5-7.5)
--- NOTE | 2023-12-02 14:24 | PM.IMPN ---
Progress Note: A&P Assessment and Plan (1) Vertigo: Code(s): R42 - Dizziness and giddiness Status: Acute (2) Hypertension: Code(s): I10 - Essential (primary) hypertension Status: Acute (3) Diastolic congestive heart failure: Code(s): I50.30 - Unspecified diastolic (congestive) heart failure Status: Acute (4) Hypothyroidism: Code(s): E03.9 - Hypothyroidism, unspecified Status: Acute (5) Left knee pain: Code(s): M25.562 - Pain in left knee Status: Acute Plan Dizziness/Vertigo Orthostatics negative CT no acute issues MRI with normal aging patterns Neurology consulted PT with vestibular meclazine BID Hypothyroidism TSH resumed levothyroxine HTN has been hypotensive during admission-Improving stable/Soft BP resumed home medications monitor per unit protocol will lower her carvedilol too 3.125 Valsartan switched to 160mg daily Bradycardia-Intermittently Episodes of bradycardia at night while sleeping recommend sleep study O/P to evaluate for KARTIK LT Knee pain secondary to OA Pain medication added Doppler negative for DVT PT/OT Uric acid WNL (patient reported burning pain in left great toe) Added diclofenac cream celecoxib 100mg BID Weakness: Worsening since admission wheezing noted CXR clear lung jones F/U UA pending Leukocytosis trended up to 12.2 Code status: Full code per patient DVT prophylaxis: SCD Stress ulcer prophylaxis: NA PT/OT notes: PT/OT vestibular Disposition: Patient continues admission recent change in status patient with fever, chills audible wheezing and worsening weakness. Time Spent With Patient Time with patient: 25 - 35 minutes Subjective Date/time seen: 12/02/23 14:24 Interval history: (Medical Record) Chief Complaint: Dizziness. Narrative: This is a very pleasant 88-year-old female with hypertension, diastolic congestive heart failure, aortic aneurysm status post aortic sleeve, and hypothyroidism who presented to the emergency department via EMS from home for evaluation of dizziness. The patient provides the following history. When trying to get above this morning she developed sudden onset of dizziness which she further qualifies as vertigo, reporting that she felt the room and herself spinning. She lay back down on the bed and that seemed to help somewhat but it recurred each time she lifted her head up or sat up. She has had 2 similar episodes in the past, each when her blood pressure was pretty high. She had URI symptoms at the end of September but does have nearly resolved. She denies associated visual changes, facial droop, difficulty speaking and swallowing, aural fullness, tinnitus, focal weakness, and paresthesias. No syncope or presyncope. She has not had fever, chills, or sweats. Denies falls. No recent change in medications. In the ED: She was afebrile on arrival. Blood pressures have been running in the 150s to 160s systolic. CMP and CBC did not show any significant findings with the only outlier is being a platelet count of 148, chloride 112, BUN 23, glucose 117. Urine was cloudy with 21 to 50 WBC and 1+ bacteria though many squamous cells were noted on microscopy and she has no symptoms to suggest UTI. CT of the head and neck showed normal aging brain and no significant stenosis, aneurysms, or vessel occlusions. She was given a dose of meclizine and is being admitted in this setting for further monitoring and workup. 11/27: Patient still had complaints of dizziness today worse with movement. MRI showed no acute issues with normal aging pattern. Patient was seen my neurology who recommended PT with vestibular. Inititial plan was to discharge home with home health however patient family did not feel comfortable patient going home alone at this time and has requested possible SNF for continued PT/OT. Currently waiting on recs from PT/OT and will consult CC for linnea
[2023-12-02 14:45] LABS: Alanine Aminotransferase 18 U/L (6-35); Alkaline Phosphatase 97 U/L (38-126); Anion Gap 2 mmol/L (8-16); Aspartate Amino Transferase 24 U/L (14-36); Bilirubin,Total 1.2 mg/dL (0.2-1.3); Blood Urea Nitrogen 21 mg/dL (7-17); Calcium 9.1 mg/dL (8.4-10.2); Carbon Dioxide 26 mmol/L (22-30); Chloride 106 mmol/L (98-107); Estimated CRCL calculation 50 ml/min; Estimated Glomerular Filt Rate 52; Glucose 120 mg/dL (65-110); Hematocrit 37.6 % (37.0-47.0); Hemoglobin 11.9 g/dL (12.0-15.0); Mean Corpuscular HGB Conc 31.6 g/dl (32-36); Mean Corpuscular Hemoglobin 29.8 pg (26-34); Mean Corpuscular Volume 94.2 fl (80-100); Mean Platelet Volume 11.9 fl (7.4-10.4); Platelet Count Result 156 k/mm3 (150-375); Red Blood Count 3.99 M/mm3 (4.2-5.4); Red Cell Distribution Width 14.7 % (11.5-14.5); Sodium 134 mmol/L (137-145); White Blood Count 12.2 K/mm3 (4.5-10.0)
[2023-12-02 16:24] LABS: SARS-CoV-2 RNA PCR Negative (Negative)
[2023-12-02] MEDS: CELECOXIB 100 MG CAPSULE PO (16:40)
[2023-12-02] MEDS: DICLOFENAC SODIUM 1% 100 GM GEL (*BKC) 1 APPLIC TOPICAL ×2 (16:41→20:34)
[2023-12-02 18:35] LABS: Appearance Urine Clear (Clear); Bacteria Urine 4+ /hpf; Bilirubin Urine Negative (Negative); Blood Urine Negative (Negative); Color Urine Dark Yellow (Yellow); Glucose Urine UA Negative (Negative); Ketones Urine Negative (Negative); Leukocyte Esterase Ur Negative LEU/UL (Negative); Nitrate Urine Negative (Negative); Non Pathogenic Casts 0-2; Protein Urine Trace mg/dL (Negative); RBC Urine 0-2 /hpf (0-2); Specific Grav Ur 1.018 (1.001-1.035); Squamous Epithelial Cell Urine Occasional /hpf (Few); WBC Urine 0-5 /hpf (0-3); pH Urine 7.5 (5.0-9.0)
[2023-12-02 19:08] LABS: Add Urine Microscopic? YES
[2023-12-02] MEDS: IPRATROPIUM 0.5 MG/ALBUTEROL SULFATE 2.5 MG AMPUL.NEB 3 ML INHALATION (19:21)
[2023-12-02] MEDS: ACETAMINOPHEN 325 MG TABLET 650 MG PO (20:34)
[2023-12-03] VITALS (22 sets, daily range): BP systolic 101–114; BP diastolic 35–57; PULSE 62–82; RESP 12–18; TEMP 36.2–36.7; O2SAT 94–98
[2023-12-03] MEDS: IPRATROPIUM 0.5 MG/ALBUTEROL SULFATE 2.5 MG AMPUL.NEB 3 ML INHALATION ×4 (02:15→21:38)
[2023-12-03 05:47] LABS: Hematocrit 36.1 % (37.0-47.0); Hemoglobin 11.3 g/dL (12.0-15.0); Mean Corpuscular HGB Conc 31.3 g/dl (32-36); Mean Corpuscular Hemoglobin 29.7 pg (26-34); Mean Corpuscular Volume 94.8 fl (80-100); Mean Platelet Volume 11.1 fl (7.4-10.4); Platelet Count Result 165 k/mm3 (150-375); Red Blood Count 3.81 M/mm3 (4.2-5.4); Red Cell Distribution Width 14.6 % (11.5-14.5); White Blood Count 10.7 K/mm3 (4.5-10.0)
[2023-12-03 05:58] LABS: Alanine Aminotransferase 16 U/L (6-35); Albumin Level 2.8 g/dL (3.5-5.1); Alkaline Phosphatase 92 U/L (38-126); Anion Gap 5 mmol/L (8-16); Aspartate Amino Transferase 22 U/L (14-36); Bilirubin,Total 1.4 mg/dL (0.2-1.3); Blood Urea Nitrogen 30 mg/dL (7-17); Calcium 8.9 mg/dL (8.4-10.2); Carbon Dioxide 23 mmol/L (22-30); Chloride 105 mmol/L (98-107); Estimated CRCL calculation 42 ml/min; Estimated Glomerular Filt Rate 42; Glucose 113 mg/dL (65-110); Potassium 3.7 mmol/L (3.4-5.0); Sodium 133 mmol/L (137-145)
[2023-12-03] MEDS: LEVOTHYROXINE SODIUM 50 MCG TABLET PO (06:13)
[2023-12-03 09:20] LABS: Hepatitis B Surface Antigen Negative (Negative)
[2023-12-03 09:26] LABS: HAV RESULT Negative (Negative); Hepatitis B Core IgM Result Negative (Negative)
[2023-12-03 09:38] LABS: Hepatitis C Virus Antibody Negative (Negative)
[2023-12-03] MEDS: FUROSEMIDE 20 MG TABLET PO ×2 (10:04→17:37)
[2023-12-03] MEDS: CELECOXIB 100 MG CAPSULE PO ×2 (10:04→17:37)
[2023-12-03] MEDS: MECLIZINE HCL 25 MG TABLET PO ×2 (10:04→20:34)
[2023-12-03] MEDS: carvediloL 3.125 MG TABLET PO ×2 (10:05→17:37)
[2023-12-03] MEDS: DICLOFENAC SODIUM 1% 100 GM GEL (*BKC) 1 APPLIC TOPICAL ×3 (10:05→20:33)
--- NOTE | 2023-12-03 14:40 | P.PNIM_ITS ---
Progress Note: A&P Assessment and Plan (1) Vertigo: Code(s): R42 - Dizziness and giddiness Status: Acute Assessment and Plan: * Orthostatics negative * CT no acute issues * MRI with normal aging patterns * Neurology consulted * PT with vestibular therapy. Symptoms improved afterwards. * meclizine BID (2) Hypertension: Code(s): I10 - Essential (primary) hypertension Status: Acute Assessment and Plan: * stable/Soft BP * resumed home medications * monitor per unit protocol * will lower her carvedilol to 3.125 * Valsartan switched to 160mg daily (3) Diastolic congestive heart failure: Code(s): I50.30 - Unspecified diastolic (congestive) heart failure Status: Acute Assessment and Plan: Stable. Not in an acute exacerbation. (4) Hypothyroidism: Code(s): E03.9 - Hypothyroidism, unspecified Status: Acute Assessment and Plan: Continue home medication. (5) Left knee pain: Code(s): M25.562 - Pain in left knee Status: Acute Assessment and Plan: * Pain medication added * Doppler negative for DVT * PT/OT * Uric acid WNL (patient reported burning pain in left great toe) * Added diclofenac cream * celecoxib 100mg BID (6) Weakness: Code(s): R53.1 - Weakness Status: Acute Assessment and Plan: * Worsening since admission * UA not suggestive of infection. * Chest x-ray no acute cardiopulmonary process. * Leukocytosis 12.2 ->10.7 without intervention * Patient states that she had not been getting up out of bed and this is the reason for her weakness. * Plan to discharge patient tomorrow to rehab facility. Subjective Date/time seen: 12/03/23 14:40 Interval history: Patient states that she has had progressive weakness due to being in bed for several days at a time. Encourage patient to ambulate to the bathroom as well as work with PT and OT. Patient does not appear infectious. Encourage eating and drinking plenty of fluids. She denied any chest pain, shortness a breath, nausea vomiting. Exam Narrative: GENERAL: Comfortable, no acute distress HENMT: moist mucous membranes EYES: EOM intact b/l NECK: no lymphadenopathy RESPIRATORY: clear to auscultation CARDIO: RRR GI: soft, nontender, bowel sounds present SKIN: no rashes EXTREMITIES: no edema; Patient has mild bilateral ankle redness as well as tenderness that is likely associated with her arthritis. Patient states that diclofenac cream really helped. Able to move bilateral lower extremities without difficulty with strength 5/5 bilaterally. Objective Data Vital Signs Vital Signs: Vital Signs - 24 hr 12/02/23 16:40 12/02/23 16:00 12/02/23 19:25 Temperature Pulse Rate 80 82 67 Respiratory Rate 16 Blood Pressure Pulse Oximetry Oxygen Delivery 12/02/23 19:28 12/02/23 19:35 12/02/23 20:00 Temperature Pulse Rate 65 72 Respiratory Rate 16 17 Blood Pressure Pulse Oximetry 94 95 Oxygen Delivery Room Air Room Air 12/02/23 22:28 12/03/23 02:15 12/03/23 02:21 Temperature 98.7 F Pulse Rate 81 74 77 Respiratory Rate 16 Blood Pressu
--- NOTE | 2023-12-03 14:40 | PM.IMPN ---
Progress Note: A&P Assessment and Plan (1) Vertigo: Code(s): R42 - Dizziness and giddiness Status: Acute Assessment and Plan: Orthostatics negative CT no acute issues MRI with normal aging patterns Neurology consulted PT with vestibular therapy. Symptoms improved afterwards. meclizine BID (2) Hypertension: Code(s): I10 - Essential (primary) hypertension Status: Acute Assessment and Plan: stable/Soft BP resumed home medications monitor per unit protocol will lower her carvedilol to 3.125 Valsartan switched to 160mg daily (3) Diastolic congestive heart failure: Code(s): I50.30 - Unspecified diastolic (congestive) heart failure Status: Acute Assessment and Plan: Stable. Not in an acute exacerbation. (4) Hypothyroidism: Code(s): E03.9 - Hypothyroidism, unspecified Status: Acute Assessment and Plan: Continue home medication. (5) Left knee pain: Code(s): M25.562 - Pain in left knee Status: Acute Assessment and Plan: Pain medication added Doppler negative for DVT PT/OT Uric acid WNL (patient reported burning pain in left great toe) Added diclofenac cream celecoxib 100mg BID (6) Weakness: Code(s): R53.1 - Weakness Status: Acute Assessment and Plan: Worsening since admission UA not suggestive of infection. Chest x-ray no acute cardiopulmonary process. Leukocytosis 12.2 ->10.7 without intervention Patient states that she had not been getting up out of bed and this is the reason for her weakness. Plan to discharge patient tomorrow to rehab facility. Subjective Date/time seen: 12/03/23 14:40 Interval history: Patient states that she has had progressive weakness due to being in bed for several days at a time. Encourage patient to ambulate to the bathroom as well as work with PT and OT. Patient does not appear infectious. Encourage eating and drinking plenty of fluids. She denied any chest pain, shortness a breath, nausea vomiting. Exam Narrative: GENERAL: Comfortable, no acute distress HENMT: moist mucous membranes EYES: EOM intact b/l NECK: no lymphadenopathy RESPIRATORY: clear to auscultation CARDIO: RRR GI: soft, nontender, bowel sounds present SKIN: no rashes EXTREMITIES: no edema; Patient has mild bilateral ankle redness as well as tenderness that is likely associated with her arthritis. Patient states that diclofenac cream really helped. Able to move bilateral lower extremities without difficulty with strength 5/5 bilaterally. Objective Data Vital Signs Vital Signs: Vital Signs - 24 hr 12/02/23 16:40 12/02/23 16:00 12/02/23 19:25 Temperature Pulse Rate 80 82 67 Respiratory Rate 16 Blood Pressure Pulse Oximetry Oxygen Delivery 12/02/23 19:28 12/02/23 19:35 12/02/23 20:00 Temperature Pulse Rate 65 72 Respiratory Rate 16 17 Blood Pressure Pulse Oximetry 94 95 Oxygen Delivery Room Air Room Air 12/02/23 22:28 12/03/23 02:15 12/03/23 02:21 Temperature 98.7 F Pulse Rate 81 74 77 Respiratory Rate 16 Blood Pressure 104/53 L Pulse Oximetry 95 Oxygen Delivery 12/02/23 20:00 12/03/23 00:00 12/03/23 04:00 Temperature Pulse Rate 74 75 72 Respiratory Rate Blood Pressure Pulse Oximetry Oxygen Delivery 12/03/23 06:45 12/03/23 07:38 12/03/23 07:41 Temperature 97.7 F Pulse Rate 70 73 73 Respiratory Rate 16 16 16 Blood Pressure 111/55 L Pulse Oximetry 94 98 Oxygen Delivery Room Air 12/03/23 07:50 12/03/23 08:55 12/03/23 10:05 Temperature Pulse Rate 69 75 82 Respiratory Rate 16 Blood Pressure 114/57 L Pulse Oximetry 96 Oxygen Delivery 12/03/23 10:10 12/03/23 09:40 12/03/23 08:00 Temperature Pulse Rate 80 Respiratory Rate Blood Pressure Pulse Oximetry Oxygen Delivery Room Air Room Air
[2023-12-04] VITALS (10 sets, daily range): BP systolic 124; BP diastolic 48; PULSE 64–80; RESP 16–18; TEMP 36.8; O2SAT 94–95
[2023-12-04] MEDS: IPRATROPIUM 0.5 MG/ALBUTEROL SULFATE 2.5 MG AMPUL.NEB 3 ML INHALATION ×2 (03:31→12:58)
[2023-12-04 05:49] LABS: Hematocrit 37.1 % (37.0-47.0); Hemoglobin 11.6 g/dL (12.0-15.0); Mean Corpuscular HGB Conc 31.3 g/dl (32-36); Mean Corpuscular Volume 95.9 fl (80-100); Mean Platelet Volume 10.9 fl (7.4-10.4); Platelet Count Result 212 k/mm3 (150-375); Red Blood Count 3.87 M/mm3 (4.2-5.4); Red Cell Distribution Width 14.8 % (11.5-14.5); White Blood Count 7.9 K/mm3 (4.5-10.0)
[2023-12-04 06:05] LABS: Alanine Aminotransferase 28 U/L (6-35); Alkaline Phosphatase 116 U/L (38-126); Anion Gap 5 mmol/L (8-16); Aspartate Amino Transferase 44 U/L (14-36); Bilirubin,Total 0.8 mg/dL (0.2-1.3); Blood Urea Nitrogen 36 mg/dL (7-17); Calcium 9.3 mg/dL (8.4-10.2); Carbon Dioxide 28 mmol/L (22-30); Chloride 105 mmol/L (98-107); Estimated CRCL calculation 46 ml/min; Estimated Glomerular Filt Rate 47; Glucose 104 mg/dL (65-110); Potassium 4.2 mmol/L (3.4-5.0); Sodium 138 mmol/L (137-145)
[2023-12-04] MEDS: LEVOTHYROXINE SODIUM 50 MCG TABLET PO (06:23)
[2023-12-04] MEDS: FUROSEMIDE 20 MG TABLET PO (09:52)
[2023-12-04] MEDS: MECLIZINE HCL 25 MG TABLET PO (09:52)
[2023-12-04] MEDS: DICLOFENAC SODIUM 1% 100 GM GEL (*BKC) 1 APPLIC TOPICAL (09:53)
[2023-12-04] MEDS: CELECOXIB 100 MG CAPSULE PO (09:53)
[2023-12-04] MEDS: carvediloL 3.125 MG TABLET PO (09:54)
--- NOTE | 2023-12-04 11:31 | PM.DS ---
DS: Admitting Diagnosis Discharge Date 12/03/23 Admitting Diagnosis vertigo DS: Discharge Diagnosis Discharge Diagnosis (1) Vertigo: Code(s): R42 - Dizziness and giddiness Status: Acute Assessment and Plan: Orthostatics negative CT no acute issues MRI with normal aging patterns Neurology consulted PT with vestibular therapy. Symptoms improved afterwards. meclizine BID (2) Hypertension: Code(s): I10 - Essential (primary) hypertension Status: Acute Assessment and Plan: stable/Soft BP resumed home medications monitor per unit protocol will lower her carvedilol to 3.125 Valsartan 160mg held due to systolic BP around 110. (3) Diastolic congestive heart failure: Code(s): I50.30 - Unspecified diastolic (congestive) heart failure Status: Acute Assessment and Plan: Stable. Not in an acute exacerbation. (4) Hypothyroidism: Code(s): E03.9 - Hypothyroidism, unspecified Status: Acute Assessment and Plan: Continue home medication. (5) Left knee pain: Code(s): M25.562 - Pain in left knee Status: Acute Assessment and Plan: Pain medication added Doppler negative for DVT PT/OT Uric acid WNL (patient reported burning pain in left great toe) Added diclofenac cream celecoxib 100mg BID (6) Weakness: Code(s): R53.1 - Weakness Status: Acute Assessment and Plan: Worsening since admission UA not suggestive of infection. Chest x-ray no acute cardiopulmonary process. Leukocytosis 12.2 ->10.7 without intervention Patient states that she had not been getting up out of bed and this is the reason for her weakness. Plan to discharge patient tomorrow to rehab facility. DS: Summary Hospital Course Hospital Course: This is a very pleasant 88-year-old female with hypertension, diastolic congestive heart failure, aortic aneurysm status post aortic sleeve, and hypothyroidism who presented to the emergency department via EMS from home for evaluation of dizziness. The patient provides the following history. When trying to get above this morning she developed sudden onset of dizziness which she further qualifies as vertigo, reporting that she felt the room and herself spinning. She lay back down on the bed and that seemed to help somewhat but it recurred each time she lifted her head up or sat up. She has had 2 similar episodes in the past, each when her blood pressure was pretty high. She was afebrile on arrival. Blood pressures have been running in the 150s to 160s systolic. CMP and CBC did not show any significant findings with the only outlier is being a platelet count of 148, chloride 112, BUN 23, glucose 117. Urine was cloudy with 21 to 50 WBC and 1+ bacteria though many squamous cells were noted on microscopy and she has no symptoms to suggest UTI. CT of the head and neck showed normal aging brain and no significant stenosis, aneurysms, or vessel occlusions. She was given a dose of meclizine with improvement. PT Did vestibular therapy with the patient and she improved. PT and OT continue to work with the patient due to progressive weakness. Patient did have some lower blood pressures during the hospital and her valsartan was held stromal lysed her blood pressures. Her Coreg was also decreased due to bradycardia. Recommended discharge with blood pressure monitoring as well as holding valsartan and continuing low-dose Coreg. She will be discharged to SNF due to progressive weakness. Time Spent with Patient Time attestation: Total time spent providing and/or coordinating discharge services: Exam Narrative: GENERAL: Comfortable, no acute distress HENMT: moist mucous membranes EYES: EOM intact b/l NECK: no lymphadenopathy RESPIRATORY: clear to auscultation CARDIO: RRR GI: soft, nontender, bowel sounds present SKIN: no rashes EXTREMITIES: no edema; Lupe
--- NOTE | 2023-12-04 13:02 | PC.NURSE ---
On 12/04/23, the student, [Kiki George], provided care and completed [facility] documentation on this patient. I have reviewed the student's documentation and agree with the findings.
[2023-12-04 13:27] LABS: SARS-CoV-2 RNA PCR Negative (Negative)
== END 2023-12-04 13:34 | DRG 948 ==
LOC: ANHED 12:55 → ANH2MED 18:25
PROVIDERS: Nurse Practitioner Family; Physician Assistant; Student in an Organized Health Care Education/Training Program; Admitting Provider Family Medicine; Emergency Provider Student in an Organized Health Care Education/Training Program; PCP Physician Assistant; Visit Provider Internal Medicine Critical Care Medicine
DX: R53.1 Weakness (principal); I50.32 Chronic diastolic (congestive) heart failure; R42 Dizziness and giddiness; R00.1 Bradycardia, unspecified; E03.9 Hypothyroidism, unspecified; I25.2 Old myocardial infarction; I95.9 Hypotension, unspecified; I11.0 Hypertensive heart disease with heart failure; M17.12 Unilateral primary osteoarthritis, left knee; Z87.442 Personal history of urinary calculi; Z85.828 Personal history of other malignant neoplasm of skin; Z28.21 Immunization not carried out because of patient refusal; Z11.52 Encounter for screening for COVID-19
CPT/HCPCS: 36415; 70496; 70498; 70553; 71046; 76705; 80048; 80053; 80074; 81001; 83735; 84443; 84550; 85025; 85027; 85055; 87086; 87088; 87635; 93005; 93970; 94640; 97110; 97162; 97165; 97530; 97535; 99285; A9270; A9577; C8929; G0378; J7040; Q9957; Q9967

== ENCOUNTER 2025-02-01 10:10 | Outpatient (CLI) | payer MEDICARE, SELFPAY ==
--- NOTE | ~2025-02-01 | XR_ITS ---
Clinical Indication: Dyspnea PA and lateral views of the chest: Comparison: 12/02/2023 Findings: The lungs are clear, without evidence of focal consolidation or pleural effusion. Possible COPD. Cardiomediastinal silhouette is within normal limits. Bones and soft tissues are unremarkable. Impression: Clear lungs. Possible COPD. Reviewed, dictated and finalized at location . Impression: Clear lungs. Possible COPD.
--- OUTSIDE RECORDS SUMMARY | 2025-02-01 10:29 | XMS_ITS | Clinical Summary ---
Author Organization [facility] [address] Address [address] [place] [address] Care Team Providers Care Paper Coater Name Role Phone Gerald Lau DO Primary Care Provider [phone] Allergies Active Allergy Reactions Criticality Noted Date Comments Diphenhydramine Isosorbide Dinitrate Unknown 05/01/2016 Headaches Medications furosemide (LASIX) 20 mg tablet take 1 tablet (20MG) by oral route every day 0 2 Active aspirin (ASPIR-81) 81 mg tablet take 1 Tablet by oral route every day 0 0 5 Active Additional Information Patient not taking.Reported on 09/02/2024 cetirizine (ZyrTEC) 10 mg tablet Take 1 tablet (10 mg total) by mouth daily as needed Active polyethylene glycol (MIRALAX) 17 gram/dose powder Mix the entire bottle with 64 oz of a clear liquid. Use as directed by the office for colonoscopy prep. 6 Active VALSARTAN ORAL Take 160 mg by mouth daily Take 120 mg when BP is low 2 Active levothyroxine (SYNTHROID) 50 mcg tablet Take 1 tablet (50 mcg total) by mouth daily 2 Active carvediloL (COREG) 3.125 mg tablet Take 2 tablets (6.25 mg total) by mouth 2 (two) times a day 2 Active meclizine (ANTIVERT) 25 mg tablet Take 1 tablet (25 mg total) by mouth 3 (three) times a day as needed for dizziness Active meloxicam (MOBIC) 15 mg tablet Take 1 tablet (15 mg total) by mouth daily Active Active Problems Problem Noted Date Diagnosed Date Essential hypertension 05/28/2019 Assessment & Plan (09/02/2024 9:10 AM COLD HEADER): Hypertension chronic controlled. Continue current medical management. History of abdominal aortic aneurysm repair 03/23 Abdominal aortic aneurysm without rupture 2015 Assessment & Plan (09/02/2024 9:10 AM COLD HEADER): Stent graft patent and in good position. No endoleak. Repeat CT scan and follow up in 2 years. Osteoarthritis of knee 01/13/2012 Overview (12/26/2016): DJD (degenerative joint disease) of knee Resolved Problems Problem Noted Date Diagnosed Date Resolved Date Occlusion and stenosis of bi lateral carotid arteries 06/17/2017 08/09/2021 Carotid stenosis, asymptomatic 02/08/2016 08/09/2021 Immunizations Immunization Administration Dates Next Due Influenza, Quad, Adjuvantated, Intramuscular Surgical History Surgery Date Site/Laterality Comments KNEE ARTHROSCOPY Left Arthroscopy knee Medical History Medical History Date Comments Hx Other Medical 1970 arthroscopy lt. knee Hypertension Hypertension Malignant neoplasm of skin Cance r, skin Family History Medical History Relation Name Comments Other Other 1 Family history of Cancer, cervical; Heart disease Other 2 Family history of Heart disease; Relation Name Status Comments Other 1 Other 2 Social History Tobacco Use Types Packs/Day Years Used Date Smoking Tobacco: Never Tobacco Cessation:Counseling Given: Not Answered Alcohol Use Standard Drinks/Week Comments No 0 (1 standard drink = 0.6 oz pur e alcohol) Comments Unknown Sex and Gender Information Value Date Recorded Sex Assigned at Not on file Legal Sex Female 11:56 AM COLD HEADER Gender Identity Not on file Sexual Orientation Not on file Obstetrics History Last Filed Vital Signs Vital Sign Reading Time Taken Comments Blood Pressure 166/81 09/02/2024 8:58 AM COLD HEADER Pulse 58 09/02/2024 8:58 AM COLD HEADER Temperature 36.5 C (97.7 F) 05/27/2019 3:03 PM CDT Respiratory Rate - - Oxygen Saturation 96% 11/14/2012 11:53 AM COLD HEADER Inhaled Oxygen Concentration - - Weight 123.4 kg (272 lb) 09/02/2024 8:58 AM COLD HEADER Height 172.7 cm (5' 8 ) 09/02/2024 8:58 AM COLD HEADER Body Mass Index 41.36 09/02/2024 8:58 AM COLD HEADER Plan of Treatment Health Maintenance Due Date Last Done Comments Depression Screening 1936 Fall Risk Assessment 1935 DTaP/Tdap/Td Vaccine (1 - Tdap) 1947 Hepatitis B Screening 1954 Pneumococcal vaccine 65+ (1 of 1 - PCV) 1986 Zoster Vaccine (1 of 2) 1986 Well Visit 65+ 2001 Covid-19 Vaccine (2 - season) 2024 Influenza Vaccine (#1) 2024 07/09/2021 Insurance [facility] MEDICARE PPO [facility] MEDICARE PPO [employer] CHOICE MEDICARE PPO Advance Directives For more information, please contact: [phone] Documents on File Type Date Recorded Patient Pattern Weaver Expl anation ADVANCE DIRECTIVE 10/23/2012 12:00 AM POWER OF STORAGE BATTERY TESTER FINANCIAL/MEDICAL Care Teams Paper Coater Relationship Specialty Start Date End Date Gerald Lau DO [address] [facility] [address] [place] [address] PCP - General Internal Medicine 08/16/24
--- OUTSIDE RECORDS SUMMARY | 2025-02-01 10:29 | XMS_ITS | Encounter Summary ---
Author Organization [facility] Care Team Providers Care Patient Ambassador Name Role Phone Rashid Carmichael MD Primary Care Provider [phone] Gerald Lau DO Primary Care Provider [phone] Encounter Details Date Type Department Care Team (Latest Contact Info) Description 05/09/2017 Orders Only [facility] CLINCONV ProviderSumeet MD [address] [place] [address] Social History Tobacco Use Types Packs/Day Years Used Date Smoking Tobacco: Never Alcohol Use Standard Drinks/Week Comments No 0 (1 standard drink = 0.6 oz pur e alcohol) Comments Unknown Sex and Gender Information Value Date Recorded Sex Assigned at Not on file Legal Sex Female 11:56 AM ALLIANCE CONSULTANT Gender Identity Not on file Sexual Orientation Not on file documented as of this encounter Plan of Treatment Not on file documented as of this encounter Procedures Procedure Name Priority Date/Time Associated Diagnosis Comments PROCEDURE - RESULT 04/28/2017 12 :00 AM CDT documented in this encounter Results * PROCEDURE - RESULT (04/28/2017 12:00 AM CDT) Narrative 04/28/2017 12:00 AM CDT Ordered by an unspecified provider. Historical Provider Final Res ult documented in this encounter Visit Diagnoses Not on filedocumented in this encounter Care Teams Patient Ambassador Relationship Specialty Start Date End Date Rashid Carmichael MD [address] [place] [address] PCP - General 01/13/12 08/15/24 Gerald Lau DO [address] [place] [address] PCP - General Internal Medicine 08/16/24 documented as of this encounter
--- OUTSIDE RECORDS SUMMARY | 2025-02-01 10:29 | XMS_ITS | Encounter Summary ---
Author Organization [facility] Facility Care Team Providers Care Cleater Name Role Phone Rashid Carmichael MD Primary Care Provider [phone] Gerald Lau DO Primary Care Provider [phone] Encounter Details Date Type Department Care Team (Latest Contact Info) Description 05/02/2017 Orders Only [facility] CLINCONV ProviderSumeet MD [address] [place] [address] Social History Tobacco Use Types Packs/Day Years Used Date Smoking Tobacco: Never Alcohol Use Standard Drinks/Week Comments No 0 (1 standard drink = 0.6 oz pur e alcohol) Comments Unknown Sex and Gender Information Value Date Recorded Sex Assigned at Not on file Legal Sex Female 11:56 AM PLANT PROPAGATOR Gender Identity Not on file Sexual Orientation [...] on filedocumented in this encounter Care Teams Cleater Relationship Specialty Start Date End Date Rashid Carmichael MD [address] [place] [address] PCP - General 01/13/12 08/15/24 Gerald Lau DO [address] [place] [address] PCP - General Internal Medicine 08/16/24 documented as of this encounter
--- OUTSIDE RECORDS SUMMARY | 2025-02-01 10:29 | XMS_ITS | Clinical Summary ---
Author Organization [facility] Address [facility] [place] [address] Care Team Providers Care Microeconomics Professor Name Role Phone Mo Coffey MD Primary Care Provider [phone] Social History Tobacco Use Types Packs/Day Years Used Date Smoking Tobacco: Never Assessed Comments Unknown Sex and Gender Information Value Date Recorded Sex Assigned at Not on file Legal Sex Female 4:27 PM CDT Gender Identity Not on file Sexual Orientation Not on file Plan of Treatment Health Maintenance Due Date Last Done Comments DTaP, Tdap and Td Vaccines ( 1 - Tdap) 1955 Pneumococcal Vaccine: 50+ Ye ars (1 of 1 - PCV) 1986 Zoster Vaccines (1 of 2) 1986 Annual Medicare Wellness Visit 2001 RSV Immunization or 60+ Years (1 - 1-dose 75+ series) 2011 COVID-19 Vaccine ( - 2023-2 5 season) 2024 Meningococcal B Vaccine Aged Out No l onger eligible based on patient's age to complete this topic Meningococcal Vaccine Aged Out No jony benjie eligible based on patient's age to complete this topic RSV Immunizations Under 20 Months Aged Out No longer eligible based on patient's age to complete this topic Insurance [employer] Care Teams Microeconomics Professor Relationship Specialty Start Date End Date Mo Coffey MD [address] [place], [place] [id number] PCP - General FAMILY PRACTICE 12/22/23
--- OUTSIDE RECORDS SUMMARY | 2025-02-01 10:29 | XMS_ITS ---
Author Organization [facility] Care Team Providers Care Correspondence Clerk Name Role Phone Mo Coffey Unavailable Unavailable Allergies and adverse reactions Code CodeSystem Substance Reaction Severity StartDate Concern Status 603932424 SNOMED CT [place] Mild 12/05/2023 active 3498 RXNORM diphenhydrAMINE Mild 12/01/2023 activ e Care Team Name Role Address Phone Organization Dates Mo Coffey PCP [address] [place], [address] (Office): : [facility] 12/04/2023 - 01/03/2024 Immunizations Immunization Status Vaccine Details Vaccine Code CodeSystem Date Notes Influenza completed Influenza, high-dose, split virus, quadrivalent, injectable, preservative free 197 CVX created date: 12/05/2023 consent date: 12/05/2023 administere d date: 06/22/2023 Pneumovax Dose 1 cancelled Pneumococcal conjugate vaccine 20-valent (PCV20), polysaccharide [id number] conjugate, adjuvant, preservative free 216 CVX created date: 12/05/2023 consent date: 12/05/2023 TB 2 Step Mantoux Skin Test completed tuberculin skin test; unspecified formulation lotNumber: [id number] expiry: 12/21/2026 Given 0.1 ml Right Forearm intradermally Step 2 of Multi-step with next step required 98 CVX created date: 12/14/2023 consent date: 12/14/2023 administere d date: 12/14/2023 TB 2 Step Mantoux Skin Test completed tuberculin skin test; unspecified formulation lotNumber: [id number] Given 0.1 ml Left Forearm intradermally Step 1 of Multi-step with next step required 98 CVX created date: 12/05/2023 consent date: 12/04/2023 administere d date: 12/05/2023 Shingrix-Dose 1 cancelled zoster vaccine recombinant 187 CVX created date: 12/05/2023 consent date: 12/05/2023 Spikevax cancelled SARS-COV-2 (COVID-19) vaccine, mRNA, spike protein, LNP, preservative free, 50 mcg/0.5 mL dose 312 CVX created date: 12/05/2023 consent date: 12/05/2023 Mental Status Section Date Assessment Total Score Description 01/03/2024 BIMS 15 cognitively int act CAM 0 No delirium ind icated PHQ-9 00 12/08/2023 BIMS 15 cognitively int act CAM 0 No delirium ind icated PHQ-9 00 Problems Problem # Description Date of onset Resolved Date Code CodeSystem Concern Status 1 LOCAL INFECTION OF THE SKIN AND SUBCUTANEOUS TISSUE, UNSPECIFIED 12/18/2023 12/26/[address] complete d 2 ACUTE COUGH 12/05/[address] active 3 AORTIC ANEURYSM OF UNSPECIFIED SITE, WITHOUT RUPTURE 12/01/[address] active 4 BENIGN PAROXYSMAL VERTIGO, UNSPECIFIED EAR 12/01/[address] active 5 DIVERTICULOSIS OF INTESTINE, PART UNSPECIFIED, WITHOUT PERFORATION OR ABSCESS WITH BLEEDING 12/01/[address] active 6 DIZZINESS AND GIDDINESS 12/01/[address] active 7 ESSENTIAL (PRIMARY) HYPERTENSION 12/01/[address] active 8 HYPOTHYROIDISM, UNSPECIFIED 12/01/[address] active 9 LOCALIZED EDEMA 12/01/[address] a ctive 10 PRIMARY OSTEOARTHRITIS, UNSPECIFIED SITE 12/01/[address] active 11 UNSPECIFIED DIASTOLIC (CONGESTIVE) HEART FAILURE 12/01/[address] active Reason for Referral No Reasons for Referral Entered Social History Social History Observation Description Start Date End Date Code Code System Current Smoking Status Tobacco smoking consumption unknown 799378326 SNOMED CT Sex Assigned At Female 1935 25215-3 [facility] Gender Identity Vital Signs Code Code System Vitals Name Values and Units Timing Information 9279-1 [facility] Respiratory Rate Value=20.0 Units=/m in 01/03/2024 8310-5 [facility] Body Temperature Value=97.3 Units= F 01/03/2024 8867-4 [facility] Heart rate Value=72.0 Units=/min 72944-0 [facility] O2 % BldC Oximetry Value=95.0 Units= % 01/03/2024 8462-4 [facility] Blood Pressure-Diastolic Value=50 Un its=mmHg 01/03/2024 8480-6 [facility] Blood Pressure-Systolic Value=84 Uni ts=mmHg 01/03/2024 42248-3 [facility] Pain Level Value=0.0 01/03/2024 69352-6 [facility] Weight Arjba=259.7 Units=Lbs 05/2024 8302-2 [facility] Height Value=68.0 Units=Inches 12/05/2023
--- OUTSIDE RECORDS SUMMARY | 2025-02-01 10:29 | XMS_ITS | Referral Summary ---
Author Organization [facility] [address] Address [address] [place] [address] Care Team Providers Care Chair Maker Name Role Phone Gerald Lau DO Primary Care Provider [phone] Allergies Active Allergy Reactions Criticality Noted Date [...] 05/28/2019 Assessment & Plan (09/02/2024 9:10 AM OPTICAL GLASS ETCHER): Hypertension chronic controlled. Continue current medical management. History of abdominal aortic aneurysm repair 03/23 Abdominal aortic aneurysm without rupture 2015 Assessment & Plan (09/02/2024 9:10 AM OPTICAL GLASS ETCHER): Stent graft patent and in good position. [...] Dates Next Due Influenza, Quad, Adjuvantated, Intramuscular Social History Tobacco Use Types Packs/Day Years Used Date Smoking Tobacco: Never Tobacco Cessation:Counseling Given: Not Answered Alcohol Use Standard Drinks/Week Comments No 0 (1 standard drink = 0.6 oz pur e alcohol) Comments Unknown Sex and Gender Information Value Date Recorded Sex Assigned at Not on file Legal Sex Female 11:56 AM OPTICAL GLASS ETCHER Gender Identity Not on file Sexual Orientation Not on file Last Filed Vital Signs Vital Sign Reading Time Taken Comments Blood Pressure 166/81 09/02/2024 8:58 AM OPTICAL GLASS ETCHER Pulse 58 09/02/2024 8:58 AM OPTICAL GLASS ETCHER Temperature 36.5 C (97.7 F) 05/27/2019 3:03 PM CDT Respiratory Rate - - Oxygen Saturation 96% 11/14/2012 11:53 AM OPTICAL GLASS ETCHER Inhaled Oxygen Concentration - - Weight 123.4 kg (272 lb) 09/02/2024 8:58 AM OPTICAL GLASS ETCHER Height 172.7 cm (5' 8 ) 09/02/2024 8:58 AM OPTICAL GLASS ETCHER Body Mass Index 41.36 09/02/2024 8:58 AM OPTICAL GLASS ETCHER Plan of Treatment Not on file Insurance [employer] CHOICE MEDICARE PPO [employer] MEDICARE PPO [employer] CHO[employer] MEDICARE PPO Advance Directives For more information, please contact: [phone] Documents on File Type Date Recorded Patient Injection Maintenance Technician Expl anation ADVANCE DIRECTIVE 10/23/2012 12:00 AM POWER OF RETAIL ASSISTANT FINANCIAL/MEDICAL Care Teams Chair Maker Relationship Specialty Start Date End Date Gerald Lau DO [address] [facility] [address] [place] [address] PCP - General Internal Medicine 08/16/24
== END 2025-02-01 10:11 | disposition home or self-care (01) ==
PROVIDERS: PCP Internal Medicine; Visit Provider Internal Medicine
DX: R06.00 Dyspnea, unspecified (principal)
CPT/HCPCS: 71046

== ENCOUNTER 2025-02-09 14:00 | Outpatient (CLI) | payer MEDICARE, SELFPAY ==
--- NOTE | ~2025-02-09 | CT_ITS ---
Non-contrast Head CT History: Headache COMPARISON: 11/27/2023 Technique: Axial non-contrast imaging of the brain was performed. Dose reduction technique was used on this scan by utilizing automated exposure control and iterative reconstruction technique. The dose -length product (DLP) was 726.40 mGy-cm. Findings: There is no evidence of intracranial hemorrhage, mass lesion, or acute infarct. Brain par enchyma appears normal. The ventricles and subarachnoid spaces are normal in size. The calvarium ap pears normal. The visualized paranasal sinuses and mastoid air cells are clear. Impression: No significant abnormality seen. Reviewed, dictated and finalized at location . Impression: No significant abnormality seen.
== END 2025-02-09 14:01 | disposition home or self-care (01) ==
PROVIDERS: PCP Internal Medicine; Visit Provider Internal Medicine
DX: R51.9 Headache, unspecified (principal)
CPT/HCPCS: 70450

== ENCOUNTER 2025-03-31 13:29 | Outpatient (CLI) | payer MEDICARE, SELFPAY ==
--- OUTSIDE RECORDS SUMMARY | 2025-03-31 13:33 | XMS_ITS | Referral Summary ---
Author Organization [facility] [address] Address [address] [place] [address] Care Team Providers Care Asphalt Engineer Name Role Phone Gerald Lau DO Primary Care Provider [phone] Allergies Active Allergy Reactions Criticality Noted Date [...] 05/28/2019 Assessment & Plan (09/02/2024 9:10 AM WELT SOLE LAYER): Hypertension chronic controlled. Continue current medical management. History of abdominal aortic aneurysm repair 03/23 Abdominal aortic aneurysm without rupture 2015 Assessment & Plan (09/02/2024 9:10 AM WELT SOLE LAYER): Stent graft patent and in good position. [...] on file Legal Sex Female 11:56 AM WELT SOLE LAYER Gender Identity Not on file Sexual Orientation Not on file Last Filed Vital Signs Vital Sign Reading Time Taken Comments Blood Pressure 166/81 09/02/2024 8:58 AM WELT SOLE LAYER Pulse 58 09/02/2024 8:58 AM WELT SOLE LAYER Temperature 36.5 C (97.7 F) 05/27/2019 3:03 PM CDT Respiratory Rate - - Oxygen Saturation 96% 11/14/2012 11:53 AM WELT SOLE LAYER Inhaled Oxygen Concentration - - Weight 123.4 kg (272 lb) 09/02/2024 8:58 AM WELT SOLE LAYER Height 172.7 cm (5' 8) 09/02/2024 8:58 AM WELT SOLE LAYER Body Mass Index 41.36 09/02/2024 8:58 AM WELT SOLE LAYER Plan of Treatment Not on file Insurance [employer] CHOICE MEDICARE PPO [employer] MEDICARE PPO [employer] CHO[employer] MEDICARE PPO Advance Directives For more information, please contact: [phone] Documents on File Type Date Recorded Patient Financial Institution President Expl anation ADVANCE DIRECTIVE 10/23/2012 12:00 AM POWER OF FINGER WAVER FINANCIAL/MEDICAL Care Teams Asphalt Engineer Relationship Specialty Start Date End Date Gerald Lau DO [address] [place] [address] PCP - General Internal Medicine 08/16/24
--- OUTSIDE RECORDS SUMMARY | 2025-03-31 13:33 | XMS_ITS | Clinical Summary ---
Author Organization [facility] Address [address] [place] [address] Phone Care Team Providers Care Engineer Byproduct Name Role Phone Rashid Carmichael DO Primary Care Provider [phone] Caesar Romeo DO Unavailable [phone] Allergies Active Allergy Reactions Criticality Noted Date Comments Diphenhydramine Hcl Unknown 04/17/2016 Isosorbide Dinitrate Other (see Comments) 05/01 Headaches Medications polyethylene glycol (MIRALAX) Powder Mix the entire bottle with 64 oz of a clear liquid. Use as directed by the office for colonoscopy prep. 255 g 0 6 Active nebivolol (BYSTOLIC) 5 MG Tablet Take 5 mg by mouth daily. Active furosemide (LASIX) 20 MG Tablet Take 20 mg by mouth daily. Active levothyroxine (LEVOTHROID) 50 MCG Tablet Take 50 mcg by mouth daily. Active valsartan-hydro CHLOROthiazide (DIOVAN-HCT) 320-12.5 MG Tablet Take 1 Tab by mouth daily. Active aspirin EC 81 MG Tablet Delayed Response Take 81 mg by mouth 2 times daily. Active cetirizine (ZYRTEC ALLERGY) 10 MG Tablet Take 10 mg by mouth daily as needed. Active Active Problems No known active problems Immunizations Immunization Administration Dates Next Due Covid-19 Vaccine, Vector-nr, Rs-ad26, Pf, 0.5 Ml ([employer] [employer]) 12/20/2020 Family History Medical History Relation Name Comments Heart Disease Brother Heart Disease Father Breast Cancer Mother Heart Disease Mother Pacemaker Mother Cancer Other sister Heart Disease Sister 1 Multiple Sclerosis Sister 1 Uterine Cancer Sister 2 Relation Name Status Comments Brother Father Mother Other sister Sister 1 Sister 2 Social History Tobacco Use Types Packs/Day Years Used Date Smoking Tobacco: Never Alcohol Use Standard Drinks/Week Comments No 0 (1 standard drink = 0.6 oz pur e alcohol) Rarely. Comments Unknown Sex and Gender Information Value Date Recorded Sex Assigned at Not on file Legal Sex Female 4:43 PM AGRICULTURE TEACHER Gender Identity Not on file Sexual Orientation Not on file Last Filed Vital Signs Vital Sign Reading Time Taken Comments Blood Pressure 104/54 05/01/2016 9:44 AM CDT Pulse - - Temperature 36 C (96.8 F) 05/01/2016 9:44 AM CDT Respiratory Rate 17 05/01/2016 9:44 AM CDT Oxygen Saturation 94% 05/01/2016 9:44 AM CDT Inhaled Oxygen Concentration - - Weight 78 kg (172 lb) 04/16/2016 3:00 PM CDT Height 172.7 cm (5' 8) 04/16/2016 3:00 PM CDT Body Mass Index 26.15 04/16/2016 3:00 PM CDT Plan of Treatment Health Maintenance Due Date Last Done Comments DEXA Bone Density 1935 Hepatitis C Virus (HCV) Screening 1935 TdaP Immunization 1935 Pneumococcal Immunization (5 0+ years) (1 of 1 - PCV) 1986 Zoster Immunization (1 of 2) 1986 Respiratory Syncytial Virus (RSV) Immunization (Adult) (1 - 1-dose 75+ series) 2011 Influenza Immunization (#1) 2024 SARS-COV-2 Immunization (2 - 2023-25 season) 2024 12/20/2020 Hepatitis B Immunization Aged Out No longer eligible based on patient's age to complete this topic Meningococcal Immunization (ACWY) Aged Out No longer eligible based on patient's age to complete this topic Rotavirus Immunization Aged Out No lo nger eligible based on patient's age to complete this topic Insurance MEDICARE C [employer] Care Teams Engineer Byproduct Relationship Specialty Start Date End Date Rashid Carmichael DO [address] [place] [address] PCP - General Internal Medicine 05/01/16 Caesar Romeo DO [address] [place] [address] Gastroenterology 05/01/16
--- OUTSIDE RECORDS SUMMARY | 2025-03-31 13:33 | XMS_ITS | Encounter Summary ---
Author Organization [facility] Care Team Providers Care Electrical And Instrument Technician Name Role Phone Rashid Carmichael MD Primary Care Provider [phone] Gerald Lau DO Primary Care Provider [phone] Encounter Details Date Type Department Care Team (Latest Contact Info) Description 05/09/2017 Orders Only [facility] CLINCONV ProviderSumeet MD [address] [place] [address] Social History Tobacco Use Types Packs/Day Years Used Date Smoking Tobacco: Never Alcohol Use Standard Drinks/Week Comments No 0 (1 standard drink = 0.6 oz pur e alcohol) Comments Unknown Sex and Gender Information Value Date Recorded Sex Assigned at Not on file Legal Sex Female 11:56 AM SOFTWARE DEVELOPMENT ADVISOR Gender Identity Not on file Sexual Orientation [...] on filedocumented in this encounter Care Teams Electrical And Instrument Technician Relationship Specialty Start Date End Date Rashid Carmichael MD [address] [place] [address] PCP - General 01/13/12 08/15/24 Gerald Lau DO [address] [place] [address] PCP - General Internal Medicine 08/16/24 documented as of this encounter
--- OUTSIDE RECORDS SUMMARY | 2025-03-31 13:33 | XMS_ITS | Encounter Summary ---
Author Organization [facility] Facility Care Team Providers Care Water Chemist Name Role Phone Rashid Carmichael MD Primary Care Provider [phone] Gerald Lau DO Primary Care Provider [phone] Encounter Details Date Type Department Care Team (Latest Contact Info) Description 05/02/2017 Orders Only [facility] CLINCONV ProviderSumeet MD [address] [place] [address] Social History Tobacco Use Types Packs/Day Years Used Date Smoking Tobacco: Never Alcohol Use Standard Drinks/Week Comments No 0 (1 standard drink = 0.6 oz pur e alcohol) Comments Unknown Sex and Gender Information Value Date Recorded Sex Assigned at Not on file Legal Sex Female 11:56 AM EMERGENCY VEHICLE DISPATCHER Gender Identity Not on file Sexual Orientation [...] on filedocumented in this encounter Care Teams Water Chemist Relationship Specialty Start Date End Date Rashid Carmichael MD [address] [place] [address] PCP - General 01/13/12 08/15/24 Gerald Lau DO [address] [place] [address] PCP - General Internal Medicine 08/16/24 documented as of this encounter
--- OUTSIDE RECORDS SUMMARY | 2025-03-31 13:33 | XMS_ITS | Clinical Summary ---
Author Organization [facility] Address [facility] [place] [address] Care Team Providers Care Densitometer Reader Name Role Phone Mo Coffey MD Primary Care Provider [phone] Social History Tobacco Use Types Packs/Day Years [...] complete this topic Insurance HUMANA Care Teams Densitometer Reader Relationship Specialty Start Date End Date Mo Coffey MD [address] [place], [place] [id number] PCP - General FAMILY PRACTICE 12/22/23
--- OUTSIDE RECORDS SUMMARY | 2025-03-31 13:33 | XMS_ITS | Clinical Summary ---
Author Organization [facility] [address] Address [address] [place] [address] Care Team Providers Care Lead Java Software Engineer Name Role Phone Gerald Lau DO Primary Care Provider [phone] Allergies Active Allergy Reactions Criticality Noted Date [...] 05/28/2019 Assessment & Plan (09/02/2024 9:10 AM PORTABLE MACHINE SANDER): Hypertension chronic controlled. Continue current medical management. History of abdominal aortic aneurysm repair 03/23 Abdominal aortic aneurysm without rupture 2015 Assessment & Plan (09/02/2024 9:10 AM PORTABLE MACHINE SANDER): Stent graft patent and in good position. [...] on file Legal Sex Female 11:56 AM PORTABLE MACHINE SANDER Gender Identity Not on file Sexual Orientation Not on file Obstetrics History Last Filed Vital Signs Vital Sign Reading Time Taken Comments Blood Pressure 166/81 09/02/2024 8:58 AM PORTABLE MACHINE SANDER Pulse 58 09/02/2024 8:58 AM PORTABLE MACHINE SANDER Temperature 36.5 C (97.7 F) 05/27/2019 3:03 PM CDT Respiratory Rate - - Oxygen Saturation 96% 11/14/2012 11:53 AM PORTABLE MACHINE SANDER Inhaled Oxygen Concentration - - Weight 123.4 kg (272 lb) 09/02/2024 8:58 AM PORTABLE MACHINE SANDER Height 172.7 cm (5' 8) 09/02/2024 8:58 AM PORTABLE MACHINE SANDER Body Mass Index 41.36 09/02/2024 8:58 AM PORTABLE MACHINE SANDER Plan of Treatment Health Maintenance Due Date Last Done Comments Depression Screening 1936 Fall Risk Assessment 1935 Osteoporosis Screening-Bone Density Scan 1936 DTaP/Tdap/Td Vaccine (1 - Tdap) 1947 Hepatitis B Screening 1954 Pneumococcal vaccine 65+ (1 of 1 - PCV) 1986 Zoster Vaccine (1 of 2) 1986 Well Visit 65+ 2001 Covid-19 Vaccine (2 - season) 2024 Influenza Vaccine (#1) 2025 07/09/2021 Insurance [employer] MEDICARE PPO [employer] MEDICARE PPO [employer] CHOICE MEDICARE PPO Advance Directives For more information, please contact: [phone] Documents on File Type Date Recorded Patient School Community Relations Coordinator Expl anation ADVANCE DIRECTIVE 10/23/2012 12:00 AM POWER OF SOFTWARE TECHNICIAN FINANCIAL/MEDICAL Care Teams Lead Java Software Engineer Relationship Specialty Start Date End Date Gerald Lau DO [address] [facility] [address] [place] [address] PCP - General Internal Medicine 08/16/24
--- NOTE | 2025-03-31 13:48 | ECHO_ITS ---
Patient Info Name: Jessica Sparks Age: 89 years : 1935 Gender: Female Ht: 68 in Wt: 272 lbs BSA: 2.49 m2 BP: 176 / 77 mmHg Technical Quality: Fair Exam Date: 03/31/2025 1:55 PM Patient Status: O Admit Date: 03/31/2025 Exam Type: CA echo dop color flow w con Complete two-dimensional, color flow and Doppler transthoracic echocardiogram is performed with contrast to opacify the left ventricle and to improve the deliniation of the left ventricle endocardial borders. Aviation Technician: Lidya Mackenzie Attending Provider: Gerald Lau DO Contrast/Agitated Saline Contrast/Ag. Saline: Definity Amount: 2.00 ml Administered By: Lidya Mackenzie Summary 1. Definity contrast administered improved wall motion interpretation. 2. Left ventricular chamber dimension is normal. 3. Left ventricular systolic function is normal, estimated at 60-65. 4. The left ventricular diastolic function is grade I diastolic dysfunction. 5. E/e' 7 is not elevated. 6. No pulmonary hypertension, estimated pulmonary arterial systolic pressure is 35 mmHg. Left Ventricle E/e' 7 is not elevated. Left ventricular chamber dimension is normal. Left ventricular systolic function is normal, estimated at 60-65. The left ventricular diastolic function is grade I diastolic dysfunction. Definity contrast administered improved wall motion interpretation. Right Ventricle Right ventricular chamber dimension is normal. Right ventricular systolic function is normal. Left Atria Left atrial chamber dimension is normal. Right Atria Right atrial chamber dimension is normal. Aortic Valve The aortic valve is trileaflet. There is no aortic valve stenosis. There is no aortic valve regurgitation. Pulmonic Valve There is no pulmonic regurgitation. Mitral Valve There is no mitral valve stenosis. There is no mitral valve regurgitation. Tricuspid Valve There is no tricuspid valve regurgitation. No pulmonary hypertension, estimated pulmonary arterial systolic pressure is 35 mmHg. Pericardium/Pleural There is no pericardial effusion. Inferior Vena Cava Normal inferior vena cava with >50% collapse upon inspiration consistent with normal right atrial pressure, 5 mmHg. Aorta The aortic root size at the sinus of Valsalva is normal. Left Ventricular Outflow Tract Name Value Normal LVOT 2D LVOT Diameter 2.0 cm LVOT Doppler LVOT Peak Velocity 128 cm/s LVOT Peak Gradient 7 mmHg LVOT Mean Gradient 3 mmHg LVOT VTI 29 cm LVOT Stroke Volume 93 ml LVOT CO 6.3 l/min LVOT CI 2.5 l/min/m2 Pulmonic Valve Name Value Normal PV Doppler PV Peak Velocity 99 cm/s PV Peak Gradient 4 mmHg Mitral Valve Name Value Normal MV Diastolic Function MV E Peak Velocity 62 cm/s MV A Peak Velocity 95 cm/s MV E/A 0.7 MV Decel Time (PW) 432 ms MV Annular TDI MV E/e' (Septal) 8.3 MV E/e' (Lateral) 6.5 MV E/e' (Average) 7.4 Tricuspid Valve Name Value Normal TV Regurgitation Doppler TR Peak Velocity 276 cm/s TR Peak Gradient 20 mmHg Estimated PAP/RSVP RA Pressure 5 mmHg <=5 PA Systolic Pressure 35 mmHg <36 RV Systolic Pressure 35 mmHg <36 Aortic Valve Name Value Normal AV Doppler AV Peak Velocity 134 cm/s AV Peak Gradient 7 mmHg AV Area (Cont Eq [place]) 3.0 cm2 AV DI ([place]) 0.95 AV Regurgitation 2D LVOT Area 3.2 cm2 Ventricles Name Value Normal LV Dimensions 2D/MM IVS Diastolic Thickness (2D) 1.1 cm 0.6-1.0 LVID Diastole (2D) 4.0 cm 3.8-5.2 LVIW Diastolic Thickness (2D) 1.1 cm 0.6-0.9 LVID Systole (2D) 2.5 cm 2.2-3.5 LVOT Diameter 2.0 cm LV Mass (2D Cubed) 146.99 g 67.00-162.00 LV Mass Index (2D Cubed) 59 g/m2 43-95 Relative Wall Thickness (2D) 0.56 <=0.42 LV Fractional Shortening/Ejection Fraction 2D/MM LV Fractional Shortening (2D) 38 % 27-45 LV EF (2D Teichholz) 69 % LV Diastolic Volume (4C MOD) 77 ml LV EF (4C MOD) 71 % LV Diastolic Volume (2C MOD) 55 ml LV EF (2C MOD) 56 % LV Diastolic Volume (BP MOD) 65 ml 46-106 LV Diastolic Volume Index (BP MOD) 26 ml/m2 29-61 LV Systolic Volume (BP MOD) 23 ml 14-42 LV Systolic Volume Index (BP MOD) 9 ml/m2 8-24 LV EF (BP MOD) 65 % 54-74 LV Diastolic Length (4C) 7.6 cm LV Systolic Length (4C) 6.2 cm LV Stroke Volume (4C MOD) 55 ml Atria Name Value Normal LA Dimensions LA Volume (4C A-L) 43 ml LA Volume (BP A-L) 47 ml Report Signatures
[2025-03-31] MEDS: PERFLUTREN LIPID MICROSPHERES 1.5 ML VIAL DILUTED TO 10 ML TOTAL VOLUME IV PUSH (14:45)
--- NOTE | 2025-03-31 16:06 | IVDEFINITY ---
Prior to administration of IV Definity the patient was educated on the risks and benefits of the imaging enhancing agent including potential adverse side effects. The patient verbalized understanding. Allergies were verified. No exclusion criteria were identified and at least one of the following inclusion criteria were met: 1) physician request, 2) patient technically difficult to image (per the [place] Society of Echocardiography guidelines of two or more segments not discernable within the apical view), or 3) questionable left ventricular function. ?
== END 2025-03-31 13:30 | disposition home or self-care (01) ==
PROVIDERS: PCP Internal Medicine; Visit Provider Internal Medicine
DX: I50.30 Unspecified diastolic (congestive) heart failure (principal)
CPT/HCPCS: C8929; Q9957

== ENCOUNTER 2025-04-28 11:46 | Outpatient (CLI) | payer MEDICARE, SELFPAY ==
--- OUTSIDE RECORDS SUMMARY | 2025-04-28 11:50 | XMS_ITS | Clinical Summary ---
Author Organization [facility] Address [address] [facility] [place] [address] Care Team Providers Care Employee Benefits Attorney Name Role Phone Rashid Carmichael DO Primary Care Provider [phone] Source Comments [facility],non-owned Affiliates and Associated Physician Practices is amultiple site organization consisting of ambulatory clinics and hospital sitesin [place] and [place]. This disclosure is being madepursuant to the Care Everywhere program and may not contain all information available regarding this patient. Last updated 18.[facility] Encounters Date Type Department Care Team Description 04/26/2025 Lab Requisition [facility] - [facility] Lab [address] [place] [address] Pavel Pascual MD from Last 3 Months Social History Tobacco Use Types Packs/Day Years Used Date Smoking Tobacco: Never Assessed Comments Unknown Sex and Gender Information Value Date Recorded Sex Assigned at Not on file Legal Sex Female 2:23 PM CDT Gender Identity Not on file Sexual Orientation Not on file Plan of Treatment Health Maintenance Due Date Last Done Comments BONE DENSITY TESTING 1935 DTAP/TDAP/TD VACCINES (1 - Tdap) 1955 PNEUMOCOCCAL VACCINE 50+ (1 of 1 - PCV) 1986 ZOSTER VACCINE (1 of 2) 1986 Respiratory Syncytial Virus (RSV) Vaccine Pt: or over 60 yrs (1 - 1-dose 75+ series) 2011 COVID-19 VACCINE ( - 2023-2 5 season) 2024 DEPRESSION SCREENING 09/22/2024 INFLUENZA VACCINE (#1) 2025 HEPATITIS B VACCINE Aged Out No longe r eligible based on patient's age to complete this topic HIB VACCINE Aged Out No longer eligi ble based on patient's age to complete this topic HPV VACCINE Aged Out No longer eligi ble based on patient's age to complete this topic MENINGOCOCCAL (Group B) VACC INE SHARED DECISION-MAKING Aged Out No longer eligibl e based on patient's age to complete this topic MENINGOCOCCAL GROUPS A/C/Y/W VACCINE Aged Out No longer eligible b ased on patient's age to complete this topic Insurance [facility] MEDICARE ADV HMO & PPO Care Teams Employee Benefits Attorney Relationship Specialty Start Date End Date Rashid Carmichael DO [address] [facility] [address] [place] [address] PCP - General 05/22/18
--- OUTSIDE RECORDS SUMMARY | 2025-04-28 11:50 | XMS_ITS | Clinical Summary ---
Author Organization [facility] Address [address] [place] [address] Phone Care Team Providers Care Oil House Attendant Name Role Phone Rashid Carmichael DO Primary Care Provider [phone] Caesar Romeo DO Unavailable [phone] Allergies Active Allergy Reactions Criticality Noted [...] Covid-19 Vaccine, Vector-nr, Rs-ad26, Pf, 0.5 Ml ([employer]) 12/20/2020 Family History Medical History Relation Name [...] on file Legal Sex Female 4:43 PM RODENT CONTROL WORKER Gender Identity Not on file Sexual Orientation [...] Health Maintenance Due Date Last Done Comments Hepatitis C Virus (HCV) Screening 1935 TdaP Immunization 1935 Pneumococcal Immunization (5 0+ years) (1 of 1 - PCV) 1986 Zoster Immunization (1 of 2) 1986 Respiratory Syncytial Virus (RSV) Immunization (Adult) (1 - 1-dose 75+ series) 2011 SARS-COV-2 Immunization (2 - season) 2024 12/20/2020 Influenza Immunization (#1) 2025 Hepatitis B Immunization Aged Out No longer eligible based on patient's age to complete this topic Human Papillomavirus (HPV) Immunization Aged Out No longer eligible b ased on patient's age to complete this topic Meningococcal Immunization (ACWY) Aged Out No longer eligible based on patient's age to complete this topic Rotavirus Immunization Aged Out No lo nger eligible based on patient's age to complete this topic Insurance MEDICARE C HUMANA Care Teams Oil House Attendant Relationship Specialty Start Date End Date Rashid Carmichael DO [address] [place] [address] PCP - General Internal Medicine 05/01/16 Caesar Romeo DO [address] [place] [address] Gastroenterology 05/01/16
--- OUTSIDE RECORDS SUMMARY | 2025-04-28 11:50 | XMS_ITS | Clinical Summary ---
Author Organization [facility] Address [facility] [place] [address] Care Team Providers Care Finisher Denture Name Role Phone Mo Coffey MD Primary Care Provider [phone] Social History Tobacco Use Types Packs/Day Years [...] complete this topic Insurance [employer] Care Teams Finisher Denture Relationship Specialty Start Date End Date Mo Coffey MD [address] [place], [place] [id number] PCP - General FAMILY PRACTICE 12/22/23
--- OUTSIDE RECORDS SUMMARY | 2025-04-28 11:50 | XMS_ITS | Encounter Summary ---
Author Organization [facility] Facility Care Team Providers Care Chucking And Sawing Machine Operator Name Role Phone Rashid Carmichael MD Primary Care Provider [phone] Gerald Lau DO Primary Care Provider [phone] Encounter Details Date Type Department Care Team (Latest Contact Info) Description 05/09/2017 Orders Only [facility] CLINCONV ProviderSumeet MD [address] [place] [address] Social History Tobacco Use Types Packs/Day Years Used Date Smoking Tobacco: Never Alcohol Use Standard Drinks/Week Comments No 0 (1 standard drink = 0.6 oz pur e alcohol) Comments Unknown Sex and Gender Information Value Date Recorded Sex Assigned at Not on file Legal Sex Female 11:56 AM DIRECTOR OF PRODUCT DEVELOPMENT Gender Identity Not on file Sexual Orientation [...] on filedocumented in this encounter Care Teams Chucking And Sawing Machine Operator Relationship Specialty Start Date End Date Rashid Carmichael MD [address] [place] [address] PCP - General 01/13/12 08/15/24 Gerald Lau DO [address] [place] [address] PCP - General Internal Medicine 08/16/24 documented as of this encounter
--- OUTSIDE RECORDS SUMMARY | 2025-04-28 11:50 | XMS_ITS | Encounter Summary ---
Author Organization [facility] Address [address] [facility] [place] [address] Care Team Providers Care Instructor Of Nursing Name Role Phone Rashid Carmichael DO Primary Care Provider [phone] Encounter Details Date Type Department Care Team (Late st Contact Info) Description 04/26/2025 Lab Requisition [facility] - [facility] Lab [address] [facility] [place] [address] Pavel Pascual MD [facility] [address] [place] [address] Social History Tobacco Use Types Packs/Day Years Used Date Smoking Tobacco: Never Assessed Comments Unknown Sex and Gender Information Value Date Recorded Sex Assigned at Not on file Legal Sex Female 2:23 PM CDT Gender Identity Not on file Sexual Orientation Not on file documented as of this encounter Plan of Treatment Pending Results Name Type Priority Associated Diagnoses Date /Time DERMATOPATHOLOGY Pathology Cytology Routine 04/25/2025 12:00 AM CDT documented as of this encounter Visit Diagnoses Not on filedocumented in this encounter Care Teams Instructor Of Nursing Relationship Specialty Start Date End Date Rashid Carmichael DO [address] [facility] [address] [place] [address] PCP - General 05/22/18 documented as of this encounter
--- OUTSIDE RECORDS SUMMARY | 2025-04-28 11:50 | XMS_ITS | Clinical Summary ---
Author Organization [facility] [address] Address [address] [place] [address] Care Team Providers Care Cryptographic Clerk Name Role Phone Gerald Lau DO Primary Care Provider [phone] Allergies Active Allergy Reactions Criticality Noted Date [...] 05/28/2019 Assessment & Plan (09/02/2024 9:10 AM WATCH INSPECTOR): Hypertension chronic controlled. Continue current medical management. History of abdominal aortic aneurysm repair 03/23 Abdominal aortic aneurysm without rupture 2015 Assessment & Plan (09/02/2024 9:10 AM WATCH INSPECTOR): Stent graft patent and in good position. [...] on file Legal Sex Female 11:56 AM WATCH INSPECTOR Gender Identity Not on file Sexual Orientation Not on file Obstetrics History Last Filed Vital Signs Vital Sign Reading Time Taken Comments Blood Pressure 166/81 09/02/2024 8:58 AM WATCH INSPECTOR Pulse 58 09/02/2024 8:58 AM WATCH INSPECTOR Temperature 36.5 C (97.7 F) 05/27/2019 3:03 PM CDT Respiratory Rate - - Oxygen Saturation 96% 11/14/2012 11:53 AM WATCH INSPECTOR Inhaled Oxygen Concentration - - Weight 123.4 kg (272 lb) 09/02/2024 8:58 AM WATCH INSPECTOR Height 172.7 cm (5' 8) 09/02/2024 8:58 AM WATCH INSPECTOR Body Mass Index 41.36 09/02/2024 8:58 AM WATCH INSPECTOR Plan of Treatment Health Maintenance Due Date Last Done Comments Depression Screening 1936 Fall Risk Assessment 1936 Osteoporosis Screening-Bone Density Scan 1936 DTaP/Tdap/Td Vaccine (1 - Tdap) 1947 Hepatitis B Screening 1954 Pneumococcal vaccine 65+ (1 of 1 - PCV) 1986 Zoster Vaccine (1 of 2) 1986 Well Visit 65+ 2001 Covid-19 Vaccine (2 - season) 2024 Influenza Vaccine (#1) 2025 07/09/2021 Insurance [employer] MEDICARE PPO [employer] MED[employer]ARE PPO [employer] CHOICE MEDICARE PPO Advance Directives For more information, please contact: [phone] Documents on File Type Date Recorded Patient Academic Services Professional Expl anation ADVANCE DIRECTIVE 10/23/2012 12:00 AM POWER OF EXERCISE SCIENCE INSTRUCTOR FINANCIAL/MEDICAL Care Teams Cryptographic Clerk Relationship Specialty Start Date End Date Gerald Lau DO [address] [facility] [address] [place] [address] PCP - General Internal Medicine 08/16/24
--- OUTSIDE RECORDS SUMMARY | 2025-04-28 11:50 | XMS_ITS | Encounter Summary ---
Author Organization [facility] Facility Care Team Providers Care Ct Technologist Name Role Phone Rashid Carmichael MD Primary Care Provider [phone] Gerald Lau DO Primary Care Provider [phone] Encounter Details Date Type Department Care Team (Latest Contact Info) Description 05/02/2017 Orders Only [facility] CLINCONV ProviderSumeet MD [address] [place] [address] Social History Tobacco Use Types Packs/Day Years Used Date Smoking Tobacco: Never Alcohol Use Standard Drinks/Week Comments No 0 (1 standard drink = 0.6 oz pur e alcohol) Comments Unknown Sex and Gender Information Value Date Recorded Sex Assigned at Not on file Legal Sex Female 11:56 AM FLOOR ASSEMBLER Gender Identity Not on file Sexual Orientation [...] on filedocumented in this encounter Care Teams Ct Technologist Relationship Specialty Start Date End Date Rashid Carmichael MD [address] [place] [address] PCP - General 01/13/12 08/15/24 Gerald Lau DO [address] [place] [address] PCP - General Internal Medicine 08/16/24 documented as of this encounter
--- NOTE | 2025-05-09 08:30 | WPDHOLTEREM ---
Holter/Event Monitor Holter/Event Monitor Date of procedure: 04/28/25 Holter/Event Procedure: 3-7 Day Holter Monitor Indications: Dizziness Conclusion: 1. 4 days holter monitor on 04/28/25. 2. Underlying rhythm is sinus rhythm. HR range 35-98 bpm; average 64 bpm. HR at 35 bpm was on 05/01/25 at 7:04 am. 3. There are occasional premature supraventricular complexes. No supraventricular tachycardia. 4. There are rare premature ventricular complexes. No ventricular tachycardia. 5. There are 4 pauses greater than 3 seconds with longest at 4.2 seconds on 05/01/25 at 8:34 pm, second longest at 4.1 seconds on 05/01/25 at 7:05 am due to sinus pause. 6. Patient reports 5 episodes of symptoms of chest pain, fainted, shortness of breath, lightheadedness which demonstrate sinus rhythm, HR range 61-67 bpm with 3 episodes with PAC's.
== END 2025-04-28 11:47 | disposition home or self-care (01) ==
LOC: ANHCARD 11:49
PROVIDERS: PCP Internal Medicine; Visit Provider Internal Medicine
DX: R42 Dizziness and giddiness (principal)
CPT/HCPCS: 93242